=== PATIENT | female | born 1960 | race Caucasian/White ===

== ENCOUNTER 2017-04-14 08:53 | Outpatient (CLI) | payer OTHER, SELFPAY ==
[2017-04-14 09:05] VITALS: BMI 38.0
[2017-04-14 09:20] VITALS: BP 152/86; PULSE 62; RESP 18
== END 2017-04-14 09:25 | disposition home or self-care (01) ==
LOC: INF 08:56
PROVIDERS: PCP Nurse Practitioner Family; Visit Provider Nurse Practitioner Family
DX: E56.1 Deficiency of vitamin K
CPT/HCPCS: 96372

== ENCOUNTER → 2018-09-25 07:45 | Outpatient (CLI) | payer OTHER, SELFPAY ==
--- NOTE | 2018-09-25 07:47 | MR_ITS ---
MR lumbar spine wo con HISTORY: ITS.REASON: LEFT SCIATICA ORDERING PHYSICIAN: Suman Guzman PATIENT AGE: 57 years Comparison: None TECHNIQUE: Standard multiplanar multiecho sequences are performed without contrast. 3-D MIP and myelographic images are also rendered and reviewed FINDINGS: Alignment, vertebral body heights and signal from the marrow elements appear normal. Disc space heights are normal. L4-5 shows a very small central and slightly left paracentral soft disc protrusion with mild central and left ventral thecal sac deformity. The remainder of the disc levels are normal without bulge or herniation or central canal stenosis. Nerve root and foraminal areas are normal. The conus and cauda equina nerve roots appear normal. Posterior elements are normal and appear to be intact. Paraspinal areas are unremarkable. IMPRESSION: L4-5 very small central and left paracentral soft disc protrusion with mild mass effect.
== END ==
PROVIDERS: PCP Internal Medicine; Visit Provider Internal Medicine
DX: M54.32 Sciatica, left side (principal)
CPT/HCPCS: 72148; 76376

== ENCOUNTER → 2018-11-18 13:50 | Outpatient (CLI) | payer OTHER, SELFPAY ==
--- NOTE | 2018-11-18 13:54 | CA_ITS ---
APPROVED REPORT Right Upper Extremity Venous Study for DVT. Sanitation Laborer: Ana Fischer CRT Indications Past History DVT : Right Date : 2016 lower Medications Aspirin Vein Imaging IJV (R): Normal phasic flow is seen. Normal flow, augmentation and compression is seen. No evidence of Deep Vein Thrombosis. No abnormalities are demonstrated. SCV (R): Normal phasic flow is seen. Normal flow, augmentation and compression is seen. No evidence of Deep Vein Thrombosis. No abnormalities are demonstrated. Axillary (R): Normal phasic flow is seen. Normal flow, augmentation and compression is seen. No evidence of Deep Vein Thrombosis. No abnormalities are demonstrated. Brachial (R): Normal phasic flow is seen. Normal flow, augmentation and compression is seen. No evidence of Deep Vein Thrombosis. No abnormalities are demonstrated. Basilic (R): Normal phasic flow is seen. Normal flow, augmentation and compression is seen. No evidence of Deep Vein Thrombosis. No abnormalities are demonstrated. Cephalic (R): Normal phasic flow is seen. Normal flow, augmentation and compression is seen. No evidence of Deep Vein Thrombosis. No abnormalities are demonstrated. Radial (R): Normal phasic flow is seen. Normal flow, augmentation and compression is seen. No evidence of Deep Vein Thrombosis. No abnormalities are demonstrated. Ulnar (R): Normal phasic flow is seen. Normal flow, augmentation and compression is seen. No evidence of Deep Vein Thrombosis. No abnormalities are demonstrated. Conclusion Duplex evaluation of the right upper extremity demonstrates no evidence of DVT. Electronically signed by : Benjamin Lloyd MD 11/21/2018 09:26:23
== END ==
PROVIDERS: PCP Internal Medicine; Visit Provider Nurse Practitioner
DX: M25.511 Pain in right shoulder (principal); Z86.718 Personal history of other venous thrombosis and embolism
CPT/HCPCS: 93971

== ENCOUNTER → 2019-12-21 08:54 | Outpatient (CLI) | payer OTHER, SELFPAY ==
[2019-12-21 09:17] LABS: Basophils % 0.5 % (0.1-2.0); Eosinophils # 0.1 K/mm3 (0.0-0.4); Eosinophils % 1.6 % (0.1-12.0); Hematocrit 42.8 % (37.0-47.0); Hemoglobin 14.4 g/dL (12.2-16.2); Lymphocytes # 2.1 K/mm3 (0.7-4.5); Lymphocytes % 32.7 % (10-50); Mean Corpuscular HGB Conc 33.6 g/dL (31.8-35.4); Mean Corpuscular Hemoglobin 30.6 pg (27.0-31.2); Mean Platelet Volume 7.7 fl (7.4-10.4); Monocytes # 0.4 K/mm3 (0.1-1.0); Monocytes % 6.6 % (1.7-9.3); Neutrophils # 3.8 K/mm3 (1.8-7.8); Neutrophils % 58.6 % (37.0-80.0); Platelet Count 236 K/mm3 (142-424); Red Blood Count 4.71 M/mm3 (4.20-5.40); Red Cell Distribution Width 13.1 % (11.5-17.5); White Blood Count 6.6 K/mm3 (4.8-10.8)
--- NOTE | 2019-12-21 09:30 | ECG_ITS ---
APPROVED REPORT Exam: Resting ECG HR:60 bpm ECG Measurements Heart Rate 60 AXES AZ 134 P 26 QRSd 82 QRS -4 QT 430 T 19 QTc 430 <Conclusion> Normal sinus rhythm with sinus arrhythmia Low voltage QRS Poor R Wave Progression Otherwise a normal ECG Electronically signed by : Suman Guzman, 12/21/2019 13:04:53
[2019-12-21 10:27] LABS: Chloride 103 mmol/L (98-107)
[2019-12-21 10:28] LABS: Potassium 4.5 mmoL/L (3.5-5.1); Sodium 141 mmol/L (136-145)
[2019-12-21 10:30] LABS: Alanine Aminotransferase 43 U/L (12-78); Alkaline Phosphatase 70 U/L (38-126); Aspartate Amino Transferase 37 U/L (14-36); Bilirubin,Total 0.6 mg/dl (0.2-1.3); Blood Urea Nitrogen 19 mg/dl (7-17); Estimated Glomerular Filt Rate 73 ml/min (>60); GFR (African American) 89 ML/MIN (>60)
[2019-12-21 10:31] LABS: Albumin Level 4.2 g/dl (3.5-5.0); Albumin/Globulin Ratio 1.6 (1.1-1.8); Anion Gap 12.5 mEq/L (5-15); Calcium 9.5 mg/dl (8.4-10.2); Carbon Dioxide 30 mmol/L (22.0-30.0); Globulin 2.7 g/dL (1.3-3.2); Glucose 99 mg/dl (74-100); Total Protein,Serum 6.9 g/dl (6.3-8.2)
== END ==
PROVIDERS: Visit Provider Orthopaedic Surgery
DX: Z01.818 Encounter for other preprocedural examination (principal); R07.9 Chest pain, unspecified
CPT/HCPCS: 36415; 80053; 85025; 93005

== ENCOUNTER → 2020-02-06 10:47 | Outpatient (CLI) | payer OTHER, SELFPAY ==
--- NOTE | 2020-02-06 10:53 | CA_ITS ---
APPROVED REPORT Right Lower Extremity Venous Study for DVT. Explosive Ordnance Disposal Manager: Mahi Nascimento RVT Indications Lower Extremity Pain: Right DVT of Lower Extremity: Right PAIN RT CALF, HX DVT Risk Factors Prior Phlebitis/DVT Past History DVT : Medications PT STATRED ON ELIQUS YESTERDAY Vein Imaging CFV (R): compressive, spontaneous, phasic, augmentation FEM (R): compressive, spontaneous, phasic, augmentation POP (R): compressive, spontaneous, phasic, augmentation PTV (R): Compressible GSV (R): Compressible Peroneals (R):Compressible GAS (R): Thrombus, Non-Compressible Findings Study suggests a DVT seen in the posterior mid right calf. Conclusion Study suggests a DVT seen in the posterior mid right calf. Critical Notification Physician Notified Date: 02/06/2020 Time: 11:29 Physician Name: Hali becker office Electronically signed by : Benjamin Lloyd MD 02/06/2020 16:15:31
== END ==
PROVIDERS: PCP Internal Medicine; Visit Provider Internal Medicine
DX: M79.661 Pain in right lower leg (principal); Z86.718 Personal history of other venous thrombosis and embolism
CPT/HCPCS: 93971

== ENCOUNTER → 2020-10-08 10:46 | Outpatient (CLI) | payer OTHER, SELFPAY | PROVIDERS: Visit Provider Internal Medicine | DX: Z86.718 Personal history of other venous thrombosis and embolism (principal) | CPT/HCPCS: 81241 ==

== ENCOUNTER → 2020-10-09 10:09 | Outpatient (CLI) | payer OTHER, SELFPAY ==
[2020-10-10 22:07] LABS: Protein C Antigen 118 % (60-150)
[2020-10-14 07:28] LABS: Anti-Thrombin III Antigen 97 % (72-124); Protein C Functional 139 % (73-180); Protein S, Free 144 % (57-157); Protein S, Total 132 % (60-150); Protein S-Functional 120 % (63-140)
[2020-10-14 13:20] LABS: Lupus Reflex Interpretation Comment: (.); PTT-LA 29.3 sec (0.0-51.9); dRVVT 38.9 sec (0.0-47.0)
== END ==
PROVIDERS: Visit Provider Internal Medicine
DX: Z86.718 Personal history of other venous thrombosis and embolism (principal)
CPT/HCPCS: 85301; 85302; 85305; 85306; 85378; 85613

== ENCOUNTER → 2021-02-06 10:43 | Outpatient (CLI) | payer OTHER, SELFPAY ==
--- NOTE | 2021-02-06 11:11 | CA_ITS ---
APPROVED REPORT Bilateral Lower Extremity Venous Study for DVT. Administrative Law Judge: PHUONG Indications Lower Extremity Pain: Bilateral Lower Extremity Edema: Bilateral Pain and edema x 1 month. Denies trauma. Risk Factors Prior Phlebitis/DVT Medications Patient took Eliquis for prior DVT until 09/2020. She began taking it again 01/31/21. Vein Imaging CFV (R): compressive, spontaneous, phasic, augmentation FEM (R): compressive, spontaneous, phasic, augmentation POP (R): compressive, spontaneous, phasic, augmentation PTV (R): Compressible GSV (R): compressive, spontaneous, phasic, augmentation Peroneals (R):Compressible GAS (R): Compressible CFV (L): compressive, spontaneous, phasic, augmentation FEM (L): compressive, spontaneous, phasic, augmentation POP (L): compressive, spontaneous, phasic, augmentation PTV (L): Compressible GSV (L): compressive, spontaneous, phasic, augmentation Peroneals (L):Compressible Findings No evidence of DVT or superficial thrombophlebitis in the veins scanned of the right lower extremity. No evidence of DVT or superficial thrombophlebitis in the veins scanned of the left lower extremity. Conclusion No evidence of DVT or superficial thrombophlebitis in the veins scanned of the right lower extremity. No evidence of DVT or superficial thrombophlebitis in the veins scanned of the left lower extremity. Electronically signed by : Benjamin Lloyd MD 02/06/2021 15:30:19
== END ==
PROVIDERS: PCP Internal Medicine; Visit Provider Internal Medicine
DX: M79.605 Pain in left leg (principal); M79.604 Pain in right leg; Z86.718 Personal history of other venous thrombosis and embolism
CPT/HCPCS: 93970

== ENCOUNTER → 2021-06-01 12:26 | Outpatient (CLI) | payer OTHER, SELFPAY ==
[2021-06-01 13:28] LABS: Basophils % 0.5 % (0.1-2.0); Eosinophils # 0.1 K/mm3 (0.0-0.4); Eosinophils % 1.4 % (0.1-12.0); Hematocrit 40.1 % (37.0-47.0); Lymphocytes # 1.6 K/mm3 (0.7-4.5); Lymphocytes % 26.1 % (10-50); Mean Corpuscular HGB Conc 32.5 g/dL (31.8-35.4); Mean Corpuscular Volume 92.3 fl (81-99); Mean Platelet Volume 9.1 fl (7.4-10.4); Monocytes # 0.4 K/mm3 (0.1-1.0); Monocytes % 6.5 % (1.7-9.3); Neutrophils # 3.9 K/mm3 (1.8-7.8); Neutrophils % 65.4 % (37.0-80.0); Platelet Count 260 K/mm3 (142-424); Red Blood Count 4.34 M/mm3 (4.20-5.40); Red Cell Distribution Width 13.5 % (11.5-17.5)
[2021-06-01 14:27] LABS: Chloride 98 mmol/L (98-107); Potassium 4.3 mmoL/L (3.5-5.1); Sodium 135 mmol/L (136-145)
[2021-06-01 14:29] LABS: Blood Urea Nitrogen 16 mg/dl (7-17); Estimated Glomerular Filt Rate 85 ml/min (>60); GFR (African American) 103 ML/MIN (>60)
[2021-06-01 14:30] LABS: Alanine Aminotransferase 23 U/L (12-78); Albumin Level 4.1 g/dl (3.5-5.0); Albumin/Globulin Ratio 1.6 (1.1-1.8); Alkaline Phosphatase 86 U/L (38-126); Anion Gap 10.3 mEq/L (5-15); Aspartate Amino Transferase 33 U/L (14-36); Bilirubin,Total 0.4 mg/dl (0.2-1.3); Calcium 8.2 mg/dl (8.4-10.2); Carbon Dioxide 31 mmol/L (22.0-30.0); Cholesterol 185 mg/dl (140-200); Globulin 2.6 g/dL (1.3-3.2); Glucose 77 mg/dl (74-100); Total Protein,Serum 6.7 g/dl (6.3-8.2); Triglycerides 83 mg/dl (30-150); VLDL Cholesterol 17 mg/dL (0-40)
[2021-06-01 14:31] LABS: HDL Cholesterol 46 mg/dl (40-60)
[2021-06-01 15:00] LABS: Direct LDL Cholesterol 113.29 mg/dL (100-129)
== END ==
PROVIDERS: Visit Provider Internal Medicine
DX: I10 Essential (primary) hypertension (principal); E78.5 Hyperlipidemia, unspecified; M17.11 Unilateral primary osteoarthritis, right knee; Z86.718 Personal history of other venous thrombosis and embolism
CPT/HCPCS: 80053; 80061; 85025

== ENCOUNTER → 2022-06-01 12:54 | Outpatient (CLI) | payer OTHER, SELFPAY ==
[2022-06-01 14:49] LABS: Basophils # 0.1 K/mm3 (0-0.2); Basophils % 0.8 % (0.1-2.0); Eosinophils # 0.1 K/mm3 (0.0-0.4); Eosinophils % 1.6 % (0.1-12.0); Hematocrit 40.7 % (37.0-47.0); Hemoglobin 13.1 g/dL (12.2-16.2); Lymphocytes # 1.7 K/mm3 (0.7-4.5); Lymphocytes % 26.5 % (10-50); Mean Corpuscular HGB Conc 32.1 g/dL (31.8-35.4); Mean Corpuscular Hemoglobin 29.3 pg (27.0-31.2); Mean Corpuscular Volume 91.4 fl (81-99); Mean Platelet Volume 8.8 fl (7.4-10.4); Monocytes # 0.5 K/mm3 (0.1-1.0); Monocytes % 7.2 % (1.7-9.3); Neutrophils # 4.1 K/mm3 (1.8-7.8); Neutrophils % 63.9 % (37.0-80.0); Platelet Count 308 K/mm3 (142-424); Red Blood Count 4.46 M/mm3 (4.20-5.40); Red Cell Distribution Width 13.4 % (11.5-17.5); White Blood Count 6.5 K/mm3 (4.8-10.8)
[2022-06-01 15:05] LABS: Alanine Aminotransferase 24 U/L (12-78); Albumin Level 4.3 g/dl (3.5-5.0); Albumin/Globulin Ratio 1.5 (1.1-1.8); Alkaline Phosphatase 87 U/L (38-126); Anion Gap 4.2 mEq/L (5-15); Aspartate Amino Transferase 29 U/L (14-36); Bilirubin,Total 0.5 mg/dl (0.2-1.3); Blood Urea Nitrogen 13 mg/dl (7-17); Calcium 8.8 mg/dl (8.4-10.2); Carbon Dioxide 33 mmol/L (22.0-30.0); Chloride 103 mmol/L (98-107); Chol/HDL Ratio 4.3 (1-3.5); Cholesterol 196 mg/dl (140-200); Estimated Glomerular Filt Rate 73 ml/min (>60); GFR (African American) 88 ML/MIN (>60); Globulin 2.8 g/dL (1.3-3.2); Glucose 85 mg/dl (74-100); HDL Cholesterol 46 mg/dl (40-60); Potassium 4.2 mmoL/L (3.5-5.1); Sodium 136 mmol/L (136-145); Total Protein,Serum 7.1 g/dl (6.3-8.2); Triglycerides 77 mg/dl (30-150); VLDL Cholesterol 15 mg/dL (0-40)
[2022-06-01 15:15] LABS: Direct LDL Cholesterol 124.07 mg/dL (100-129)
== END ==
PROVIDERS: PCP Internal Medicine; Visit Provider Internal Medicine
DX: I10 Essential (primary) hypertension (principal); E78.5 Hyperlipidemia, unspecified
CPT/HCPCS: 80053; 80061; 85025

== ENCOUNTER → 2022-11-30 11:00 | Outpatient (CLI) | payer OTHER, SELFPAY ==
[2022-12-01 09:08] LABS: Alanine Aminotransferase 22 U/L (12-78); Albumin Level 4.2 g/dl (3.5-5.0); Albumin/Globulin Ratio 1.4 (1.1-1.8); Alkaline Phosphatase 112 U/L (38-126); Anion Gap 11.8 mEq/L (5-15); Aspartate Amino Transferase 30 U/L (14-36); Bilirubin,Total 0.6 mg/dl (0.2-1.3); Blood Urea Nitrogen 15 mg/dl (7-17); Calcium 9.4 mg/dl (8.4-10.2); Carbon Dioxide 32 mmol/L (22.0-30.0); Chloride 99 mmol/L (98-107); Chol/HDL Ratio 4.2 (1-3.5); Cholesterol 201 mg/dl (140-200); Estimated Glomerular Filt Rate 72 ml/min (>60); GFR (African American) 88 ML/MIN (>60); Globulin 3.1 g/dL (1.3-3.2); Glucose 76 mg/dl (74-100); HDL Cholesterol 48 mg/dl (40-60); Potassium 4.8 mmoL/L (3.5-5.1); Sodium 138 mmol/L (136-145); Total Protein,Serum 7.3 g/dl (6.3-8.2); Triglycerides 89 mg/dl (30-150); VLDL Cholesterol 18 mg/dL (0-40)
[2022-12-01 09:19] LABS: Direct LDL Cholesterol 119.41 mg/dL (100-129)
== END ==
PROVIDERS: PCP Internal Medicine; Visit Provider Internal Medicine
DX: I10 Essential (primary) hypertension (principal); E78.5 Hyperlipidemia, unspecified; M17.11 Unilateral primary osteoarthritis, right knee; Z86.718 Personal history of other venous thrombosis and embolism
CPT/HCPCS: 80053; 80061

== ENCOUNTER 2023-05-23 09:20 | Outpatient (CLI) | payer OTHER, SELFPAY ==
--- NOTE | 2023-05-23 09:23 | XR_ITS ---
FINAL REPORT CLINICAL HISTORY: Foot Pain FINDINGS: LEFT FOOT Three views of the left foot demonstrate no acute fracture or dislocation. There is a small plantar spur. An accessory navicular is noted. The visualized joint spaces are normally aligned. The soft tissues are unremarkable. IMPRESSION: No acute bony abnormality. Reviewed, Interpreted and Dictated by Leo Brooks MD Transcribed by Vera Wesley Authenticated and [facility] [place] [place]
--- NOTE | 2023-05-23 09:23 | XR_ITS ---
FINAL REPORT CLINICAL HISTORY: Foot Pain FINDINGS: LEFT FOOT Three views of the left foot demonstrate no acute fracture or dislocation. The visualized joint spaces are normally aligned. There is a moderate plantar spur. Hypertrophic changes are seen at the talonavicular joint. The soft tissues are unremarkable. IMPRESSION: No acute bony abnormality. Reviewed, Interpreted and Dictated by Leo Brooks MD Transcribed by Vera Wesley Authenticated and [facility]
== END 2023-05-23 23:59 ==
LOC: RAD 09:21
PROVIDERS: PCP Internal Medicine; Visit Provider Nurse Practitioner
DX: M79.671 Pain in right foot (principal); M79.672 Pain in left foot
CPT/HCPCS: 73630

== ENCOUNTER 2023-12-08 14:50 | Outpatient (CLI) | payer OTHER, SELFPAY ==
[2023-12-08 17:27] LABS: Basophils # 0.1 K/mm3 (0-0.2); Basophils % 0.7 % (0.1-2.0); Eosinophils # 0.1 K/mm3 (0.0-0.4); Eosinophils % 1.6 % (0.1-12.0); Hematocrit 43.5 % (37.0-47.0); Hemoglobin 13.6 g/dL (12.2-16.2); Lymphocytes # 2.1 K/mm3 (0.7-4.5); Mean Corpuscular HGB Conc 31.2 g/dL (31.8-35.4); Mean Corpuscular Hemoglobin 30.2 pg (27.0-31.2); Mean Corpuscular Volume 96.8 fl (81-99); Mean Platelet Volume 9.2 fl (7.4-10.4); Monocytes # 0.5 K/mm3 (0.1-1.0); Monocytes % 6.8 % (1.7-9.3); Neutrophils # 4.9 K/mm3 (1.8-7.8); Platelet Count 287 K/mm3 (142-424); Red Cell Distribution Width 13.8 % (11.5-17.5); White Blood Count 7.7 K/mm3 (4.8-10.8)
[2023-12-08 17:47] LABS: Anion Gap 9.3 mEq/L (5-15); Blood Urea Nitrogen 17 mg/dl (7-17); Carbon Dioxide 32 mmol/L (22.0-30.0); Chloride 102 mmol/L (98-107); Potassium 4.3 mmoL/L (3.5-5.1); Sodium 139 mmol/L (136-145)
[2023-12-08 17:48] LABS: Alanine Aminotransferase 25 U/L (12-78); Albumin/Globulin Ratio 1.3 (1.1-1.8); Alkaline Phosphatase 79 U/L (38-126); Aspartate Amino Transferase 34 U/L (14-36); Bilirubin,Total 0.6 mg/dl (0.2-1.3); Calcium 9.4 mg/dl (8.4-10.2); Chol/HDL Ratio 4.3 (1-3.5); Cholesterol 208 mg/dl (140-200); Estimated Glomerular Filt Rate 84 ml/min (>60); GFR (African American) 102 ML/MIN (>60); Globulin 3.1 g/dL (1.3-3.2); Glucose 76 mg/dl (74-100); HDL Cholesterol 48 mg/dl (40-60); Total Protein,Serum 7.1 g/dl (6.3-8.2); Triglycerides 103 mg/dl (30-150); VLDL Cholesterol 21 mg/dL (0-40)
[2023-12-08 17:59] LABS: Direct LDL Cholesterol 126.65 mg/dL (100-129)
== END 2023-12-08 23:59 | disposition home or self-care (01) ==
LOC: LAB.DROPOF 12-09 14:50
PROVIDERS: PCP Internal Medicine; Visit Provider Internal Medicine
DX: I10 Essential (primary) hypertension (principal); E78.5 Hyperlipidemia, unspecified
CPT/HCPCS: 80053; 80061; 85025

== ENCOUNTER 2024-06-07 07:53 | Day surgery (SDC) | payer OTHER, SELFPAY ==
[2024-06-05 11:23] VITALS: BMI 38.9
[2024-06-07 08:59] VITALS: BP 146/62; PULSE 70; RESP 16; TEMP 36.3; O2SAT 99
[2024-06-07] MEDS: LACTATED RINGERS 1000ML 1,000 ML 50 ML IV (09:12)
--- NOTE | 2024-06-07 09:21 | P.PNANES_ITS ---
[facility] Disclaimer: The information contained in this section may have been updated after the patient was seen, as this information can be updated by other users. Medical History Family history of malignant neoplasm of cervix uteri High blood pressure DVT (deep venous thrombosis) Surgical History H/O shoulder surgery bilateral Hx of appendectomy Family History (Updated 06/07/24 @ 09:05 by Henrietta Perdomo, RN) Other Afib Uterine cancer Social History (Updated 06/07/24 @ 09:06 by Henrietta Perdomo RN) Smoking Status: Never smoker alcohol intake: never substance use type: denies use current occupational status: retired Travel in the last 8 weeks: Inside the [place] caffeine: Yes Have you lived/traveled outside US in past 30 days?: No Contact w/someone who lives/traveled outside US past 30 days?: No Exposure to someone with infectious disease in past 14 days?: No Do you have a fever (greater than 100.4 F or 38 C)?: No Have you tested positive for COVID-19: Yes Exposed to someone with COVID-19 in past 14 days?: No Do you have a sore throat?: No Do you have a cough?: No Do you have any weakness?: No Are you experiencing any nausea/vomitting?: No Do you have any diarrhea?: No Are you experiencing any unusual bleeding?: No Do you have any muscle aches/pain?: No Do you have any abdominal pain?: No Are you experiencing loss of taste or smell?: No [facility] Anesthesia Checklist Patient Identification Patient Identification: Arm Band Structural Data Admitted From: Home Planned Operative Procedure/s: Colonoscopy Consent for Planned Operative Procedure(s) Verified: Yes Verified Documents: Surgical Consent and History and Physical NPO Status Verified Time NPO: 05:00 (finished prep) Additional verifications Anesthesia Reactions: No Airway Assessment Mallampati Score:: Class II C-Spine Mobility Assessed: Yes TMJ Mobility Assessed: Yes Dentition: Good Dentition Neurological Assessment Level of Consciousness: Awake, Alert and Appropriate Anesthesia Plan Anesthesia Risk discussed: Yes Anesthesia Plan: Verified ASA Class: II Anesthesia Type: MAC
[2024-06-07 10:32] VITALS: O2SAT 100
--- NOTE | 2024-06-07 10:33 | EXP.HP ---
History of Present Illness *Admission Date: 06/07/24 *Reason for visit:: Personal history of adenomatous colon polyps *History of present illness: Mrs. Brooke is a 63-year-old female who is here for surveillance colonoscopy secondary to a personal history of adenomatous colon polyps. Her last colonoscopy was October 2018. The examination is deemed medically necessary for surveillance colonoscopy. The patient has been seen, interviewed and examined prior to the procedure by both myself and the anesthesia provider. [facility] Disclaimer: The information contained in this section may have been updated after the patient was seen, as this information can be updated by other users. Medical History Family history of malignant neoplasm of cervix uteri High blood pressure DVT (deep venous thrombosis) Surgical History H/O shoulder surgery bilateral Hx of appendectomy Family History (Updated 06/07/24 @ 09:05 by Henrietta Perdomo RN) Other Afib Uterine cancer Social History (Updated 06/07/24 @ 09:06 by Henrietta Perdomo RN) Smoking Status: Never smoker alcohol intake: never substance use type: denies use current occupational status: retired Travel in the last 8 weeks: Inside the [place] caffeine: Yes Have you lived/traveled outside US in past 30 days?: No Contact w/someone who lives/traveled outside US past 30 days?: No Exposure to someone with infectious disease in past 14 days?: No Do you have a fever (greater than 100.4 F or 38 C)?: No Have you tested positive for COVID-19: Yes Exposed to someone with COVID-19 in past 14 days?: No Do you have a sore throat?: No Do you have a cough?: No Do you have any weakness?: No Are you experiencing any nausea/vomitting?: No Do you have any diarrhea?: No Are you experiencing any unusual bleeding?: No Do you have any muscle aches/pain?: No Do you have any abdominal pain?: No Are you experiencing loss of taste or smell?: No Other Medical History Have you received the Flu Vaccine for this season: No Have you received the Pneumonia Vaccine: No Review of Systems Review of Systems Review of systems (narrative): Negative *Cardiovascular Comments: Negative *Gastrointestinal Comments: Negative *Genitourinary Comments: Negative *Musculoskeletal Comments: Negative *Neurologic Comments: Negative Meds Home Medications and Allergies Home Medications ?Medication ?Instructions ?Recorded ?Confirmed ?Type hydrocodone-homatropine 5 mg-1.5 1 tab PO Q8H PRN cough #30 tabs 04/03/24 06/07/24 Rx mg tablet (Hycodan (with homatropine)) fluticasone propionate 50 2 spray intranasal BID #16 grams 05/22/24 06/07/24 Rx mcg/actuation nasal spray,suspension (Allergy Relief (fluticasone)) irbesartan 150 See Rx Instructions .Route .COMPLEX 06/05/24 06/07/24 History mg-hydrochlorothiazide 12.5 mg tablet (Avalide) aspirin 81 mg capsule 81 mg PO DAILY 06/07/24 06/07/24 History New Prescriptions to Start Prescriptions: Allergies Allergy/AdvReac Type Severity Reaction Status Date / Time No Known Allergies Allergy Verified 06/07/24 09:02 Exam Data for Last 24 hours Vital signs and Labs for Last 24 Hours: Temp Pulse Resp BP Pulse Ox O2 Del Method O2 Flow Rate 97.4 F L 70 16 146/62 H 99 Nasal Cannula 5 06/07/24 08:59 06/07/24 08:59 06/07/24 08:59 06/07/24 08:59 06/07/24 08:59 06/07/24 10:32 06/07/24 10:32 I & O for Last 24 hours: Intake & Output 06/04/24 06/05/24 06/06/24 06/07/24 23:59 23:59 23:59 23:59 Weight 227 lb *Routine HEENT Exam Head: Present normocephalic Eye: Present EOMI and PERRL ENT: Present mucous membranes moist *Routine Neck Exam Neck: Present supple *Routine Respiratory Exam Respiratory: Present CTA bilaterally *Routine Cardiovascular Exam Cardiovascular: Present RRR *Routine Abdominal Exam Abdominal: Present soft and normoactive bowel sounds; Absent tenderness *Routine Rectal Exam Rectal:: deferred *Routine Genitalia Exam Genitalia:: deferred *Routine Extremities Exam Extremities: Absent cyanosis, clubbing or edema *Routine Skin Exam Skin: Present warm; Absent rash *Routine Neurological Exam Neurological: Present alert and oriented X3 Assessment and Plan *Assessment and plan (1) Personal history of adenomatous and serrated colon polyps: Status: Acute Category: Medical Code(s): Z86.0101 - Personal history of adenomatous and serrated colon polyps Plan A/P: 1. Personal history of adenomatous colon polyps is the preprocedural diagnosis. The patient will be anesthetized/sedated using MAC sedation. The patient has been seen and examined. Cardiac and lung assessment prior to the examination is stable. Proceed with planned surveillance colonoscopy
--- NOTE | 2024-06-07 10:34 | HMH.PROCNOTE ---
[facility] Procedure Note Date: 06/07/24 Time: 10:53 Procedure Note:: Colonoscopy Procedure Report: Colonoscopy with cold snare polypectomy Endoscopist: Keegan Chopra II, MD Referring physician: Suman Guzman MD Date of Procedure: June 07, 2024 Equipment: Olympus 190 variable stiffness pediatric colonoscope Sedation: MAC sedation Indication: Mrs. Briscoe is a 63-year-old female who is here for follow-up screening/surveillance colonoscopy. She did have a colonoscopy in 2013 and had a single polyp (tubular adenoma) removed. Her last colonoscopy in October 2018 revealed 3 polyps (tubular adenomas x 2/hyperplastic polyp x 1) which were removed. Her mother had adenomatous colon polyps. She reports no abdominal pain, weight loss, change in her bowel habits or rectal bleeding. She reports no family history of colon cancer. Procedure: Prior to the procedure, a history and physical exam was performed, and patient's medications and allergies were reviewed. The risks, benefits and alternatives of the sedation and procedure were discussed with the patient. All questions were answered and informed consent was obtained. The patient was brought to the procedure room. Patient identification and proposed procedure were verified by the physician and the nurse. The patient was placed in a left lateral decubitus position and the scope was passed under direct vision. Throughout the procedure, the patient's blood pressure, pulse, and oxygen saturations were monitored continuously. The colonoscopy was accomplished without difficulty. The patient tolerated the procedure well. Findings: On digital rectal examination there was normal rectal tone. There were no external hemorrhoids. The colonoscope was introduced through the anal canal to the rectum and advanced to the cecum. The ileocecal valve and appendiceal orifice were identified. The scope was advanced a short distance into the ileum which appeared grossly normal. The scope was then withdrawn into the colon. There were 4 colon polyps (ascending x 2 (4 and 4 mm), transverse x 1 (6 mm) and rectum x 1 (3 to 4 mm)). These were all removed via cold snare polypectomy. The remaining cecum, ascending, transverse, descending, sigmoid and rectum were grossly normal. There were no other mucosal abnormalities identified. Upon retroflexion within the rectum there were grade 1 internal hemorrhoids. The preparation was excellent throughout with [place] Preparation Score of 9. The cecal time was 14 minutes. Impression: 1. Diminutive colonic polyps x 4 Plan: I will follow-up the polyp histology and recommend repeat surveillance colonoscopy again in 5 years if the polyps are adenomatous.
[2024-06-07 10:55] VITALS: BP 93/50; PULSE 80; RESP 18; TEMP 36.6; O2SAT 97
[2024-06-07 11:05] VITALS: BP 116/67; PULSE 75; RESP 18; O2SAT 97
[2024-06-07 11:15] VITALS: BP 111/62; PULSE 68; RESP 18; O2SAT 98
[2024-06-07 11:25] VITALS: BP 126/73; PULSE 68; RESP 18; O2SAT 97
== END 2024-06-07 11:53 | disposition home or self-care (01) ==
PROVIDERS: PCP Internal Medicine; Visit Provider Internal Medicine Gastroenterology
PROC: 0DJD8ZZ Inspection of Lower Intestinal Tract, Via Natural or Artificial Opening Endoscopic (ICD-10-PCS; CPT 45378; principal; 2024-06-07 09:30)
DX: K63.5 Polyp of colon (principal); K64.0 First degree hemorrhoids; Z86.0101 Personal history of adenomatous and serrated colon polyps; Z12.11 Encounter for screening for malignant neoplasm of colon; Z83.719 Family history of colon polyps, unspecified
CPT/HCPCS: 45385; J7120

== ENCOUNTER 2024-06-14 09:45 | Outpatient (CLI) | payer OTHER, SELFPAY ==
[2024-06-14 18:54] LABS: Basophils % 0.6 % (0.1-2.0); Eosinophils # 0.1 K/mm3 (0.0-0.4); Eosinophils % 1.9 % (0.1-12.0); Hematocrit 40.8 % (37.0-47.0); Hemoglobin 12.8 g/dL (12.2-16.2); Lymphocytes # 1.7 K/mm3 (0.7-4.5); Lymphocytes % 27.7 % (10-50); Mean Corpuscular HGB Conc 31.4 g/dL (31.8-35.4); Mean Corpuscular Hemoglobin 28.9 pg (27.0-31.2); Mean Corpuscular Volume 92.1 fl (81-99); Mean Platelet Volume 11.2 fl (7.4-10.4); Monocytes # 0.7 K/mm3 (0.1-1.0); Monocytes % 11.7 % (1.7-9.3); Neutrophils # 3.6 K/mm3 (1.8-7.8); Neutrophils % 57.8 % (37.0-80.0); Platelet Count 233 K/mm3 (142-424); Red Blood Count 4.43 M/mm3 (4.20-5.40); Red Cell Distribution Width 14.3 % (11.5-17.5); White Blood Count 6.2 K/mm3 (4.8-10.8)
[2024-06-14 19:31] LABS: Albumin Level 4.4 g/dl (3.5-5.0); Chloride 101 mmol/L (98-107); Potassium 4.1 mmoL/L (3.5-5.1); Sodium 139 mmol/L (136-145)
[2024-06-14 19:34] LABS: Alanine Aminotransferase 22 U/L (12-78); Albumin/Globulin Ratio 1.8 (1.1-1.8); Alkaline Phosphatase 94 U/L (38-126); Anion Gap 11.1 mEq/L (5-15); Aspartate Amino Transferase 29 U/L (14-36); Bilirubin,Total 0.3 mg/dl (0.2-1.3); Blood Urea Nitrogen 16 mg/dl (7-17); Carbon Dioxide 31 mmol/L (22.0-30.0); Chol/HDL Ratio 4.3 (1-3.5); Cholesterol 188 mg/dl (140-200); Estimated Glomerular Filt Rate 72 ml/min (>60); GFR (African American) 87 ML/MIN (>60); Globulin 2.5 g/dL (1.3-3.2); Glucose 59 mg/dl (74-100); HDL Cholesterol 44 mg/dl (40-60); Total Protein,Serum 6.9 g/dl (6.3-8.2); Triglycerides 110 mg/dl (30-150); VLDL Cholesterol 22 mg/dL (0-40)
[2024-06-14 20:38] LABS: Direct LDL Cholesterol 112.82 mg/dL (100-129)
== END 2024-06-14 23:59 | disposition home or self-care (01) ==
LOC: LAB.DROPOF 06-15 10:17
PROVIDERS: PCP Internal Medicine; Visit Provider Internal Medicine
DX: E78.5 Hyperlipidemia, unspecified (principal); I10 Essential (primary) hypertension
CPT/HCPCS: 80053; 80061; 85025

== ENCOUNTER 2024-12-17 09:47 | Outpatient (CLI) | payer MEDICARE, OTHER, SELFPAY ==
--- NOTE | 2024-12-17 09:51 | XR_ITS ---
FINAL REPORT CLINICAL HISTORY: Lumbar back pain - LT hip pain COMPARISON: None FINDINGS: LUMBOSACRAL SPINE SERIES Five views of the lumbosacral spine were obtained. There is no fracture present. There is no malalignment. The vertebrae are normal in height. There is moderate degenerative disc disease and spondylosis. IMPRESSION: Degenerative changes without acute process. Reviewed, Interpreted and Dictated by Loreta Ulloa MD Transcribed by Shayy Green Authenticated and [facility]
--- OUTSIDE RECORDS SUMMARY | 2024-12-17 09:56 | XMS_ITS | Clinical Summary ---
Author Organization [employer] ([place], [place], [place], [place]) Address [address] [place] [address] Care Team Providers Care Agronomy Manager Name Role Phone Unavailable Primary Care Provider Unavailabl e Social History Tobacco Use Types Packs/Day Years Used Date Smoking Tobacco: Never Assessed Comments Unknown Sex and Gender Information Value Date Recorded Sex Assigned at Female 09/29/2021 8:41 PM CDT Legal Sex Female 8:41 PM CDT Gender Identity Female 09/29/2021 8:41 PM CDT Sexual Orientation Not on file Plan of Treatment Not on file
--- OUTSIDE RECORDS SUMMARY | 2024-12-17 09:56 | XMS_ITS | Clinical Summary ---
Author Organization [facility] Address [address] [place] [address] Care Team Providers Care Container Shop Welder Name Role Phone Suman Guzman MD Primary Care Provider [phone] Allergies No known active allergies Medications irbesartan-hydro chlorothiazide (AVALIDE) 150-12.5 MG tablet 02/24/2018 Active cholecalciferol (VITAMIN D3) 1000 units tablet Take 1,000 Units by mouth Daily. Active Eliquis 5 MG tablet tablet 06/30/2020 Activ e Active Problems Problem Noted Date Diagnosed Date Cervical polyp June 2019 06/06/2019 DVT (deep venous thrombosis) Mar 2017 05/03/2018 Resolved Problems Problem Noted Date Diagnosed Date Resolved Date Postmenopausal bleeding 05/03/201807/04 Family History Medical History Relation Name Comments Breast cancer Neg Hx Ovarian cancer Neg Hx Social History Tobacco Use Types Packs/Day Years Used Date Smoking Tobacco: Never Smokeless Tobacco: Never Alcohol Use Standard Drinks/Week Comments No 0 (1 standard drink = 0.6 oz pur e alcohol) AUDIT-C Answer Date Recorded Frequency of Alcohol Consumption Never 06/06/2019 Average Number of Drinks Not on file 020 Frequency of Binge Drinking Not on file 07/2019 Abuse Screen Answer Date Recorded Unsafe at Home or Work/School Not on file Feels Threatened by Someone? Not on file 12/2022 Does Anyone Keep You from Co ntacting Others or Doint Things Outside the Home? Not on file 01/10/2023 Physical Sign of Abuse Present Not on file 1 Housing Stability Answer Date Recorded Current Living Arrangements Not on file 12/2022 Potentially Unsafe Housing Conditions Not on radha e 01/10/2023 Family and Community Support Answer Esteban e Recorded Help with Day-to-Day Activities Not on file 01/10/2023 Lonely or Isolated Not on file 01/10/2023 Employment Answer Date Recorded Do you want help finding or keeping work or a bekah b? Not on file 01/10/2023 Disabilities Answer Date Recorded Concentrating, Remembering, or Making Decisions Difficulty Not on file 01/10/2023 Doing Errands Independently Difficulty Not on fi le 01/10/2023 Education Answer Date Recorded Help with school or training? Not on file Preferred Language Not on file 01/10/2023 Comments No Sex and Gender Information Value Date Recorded Sex Assigned at Not on file Legal Sex Female 12:40 PM EDT Gender Identity Not on file Sexual Orientation Not on file Last Filed Vital Signs Vital Sign Reading Time Taken Comments Blood Pressure 130/80 07/28/2020 8:55 AM EDT Pulse - - Temperature - - Respiratory Rate - - Oxygen Saturation - - Inhaled Oxygen Concentration - - Weight 98.9 kg (218 lb) 07/28/2020 8:55 AM EDT Height 160 cm (5' 3 ) 07/28/2020 8:55 AM EDT Body Mass Index 38.62 07/28/2020 8:55 AM EDT Plan of Treatment Health Maintenance Due Date Last Done Comments DXA SCAN 1959 TDAP/TD VACCINES (1 - Tdap) 09/26/1978 COLOGUARD 09/26/2004 COLON CANCER SCREENING 5 YEA R SIGMOIDOSCOPY 09/26/2004 COLONOSCOPY 09/26/2004 COLORECTAL CANCER SCREENING 09/26/2004 CT COLONOGRAPHY 09/26/2004 FECAL OCCULT BLOOD TEST 09/26/2004 FIT Testing (1 year) 09/26/2004 Pneumococcal Vaccine 50+ (1 of 1 - PCV) 09/26/2009 ZOSTER VACCINE (1 of 2) 09/26/2009 ANNUAL PHYSICAL 05/03/2018 HEPATITIS C SCREENING 05/03/2018 COVID-19 Vaccine (1 - 2023-2 5 season) 2024 INFLUENZA VACCINE 01/02/2025 MAMMOGRAM 03/16/2025 03/16/2023, 07/0 04/2020, 06/13/2019, Additional history exists Procedures Procedure Name Priority Date/Time Associated Diagnosis Comments MAMMO SCREENING DIGITAL TOMOSYNTHESIS BILATERAL W CAD Routine 03/16/2023 9:35 AM EST Visit for screening mammogram from Last 3 Months or Most Recently Relevant to Health Maintenance Results * Mammo Screening Digital Tomosynthesis Bilateral With CAD (03/16/2023 9:35 AM EST) Anatomical Region Laterality Modality Breast N/A Mammography 03/18/2023 9:44 AM EST Impressions 03/18/2023 9:44 AM EST No findings suspicious for malignancy. ACR BI-RADS CATEGORY: 1, NEGATIVE RECOMMENDATION: Yearly mammogram, yearly clinical breast exam, and encourage self breast awareness. CAD was used. The standard false negative rate of mammography is between 10% and 25%. Complex patterns or increased breast density will markedly elevate the false negative rate of mammography. A letter, in lay terminology, with the results of this exam will be mailed to the patient. At our facility, a triangular marker is positioned over a palpable area of concern indicated by the patient. A [place] marker is placed over a visible skin lesion. A linear marker indicates a scar. If there is a palpable area of concern, biopsy should be considered regardless of imaging findings. This report was finalized on 03/18/2023 9:[address] Dolores Collier MD. Narrative 03/18/2023 9:44 AM EST DIGITAL SCREENING MAMMOGRAM WITH TOMOSYNTHESIS HISTORY: Routine screening. IMAGE COMPARISON: 10/02/2020, 06/13/2019. TECHNIQUE: Low dose full field digital breast tomosynthesis imaging was performed with 2D and 3D acquisitions consisting of bilateral CC and MLO views. FINDINGS: There are scattered areas of fibroglandular density. The fibroglandular pattern appears stable. There is no mass, worrisome microcalcifications, or architectural distortion to suggest development of malignancy. Suman Guzman MD IMG MAMMOGRAPHY ORDERABLES Fin al Result from Last 3 Months or Most Recently Relevant to Health Maintenance Insurance [facility] Member Subscriber Plan / Payer (Ef fective 2018-Present) Name:Jennifer Brown Relation to Subscriber:Self Name:Jennifer Brown Payer ID:[id number] (NAIC) Group ID:Not on file Type:Not on file Address: [place] [id number] [employer] [employer] Care Teams Container Shop Welder Relationship Specialty Start Date End Date Suman Guzman MD [address] [facility] [address] [facility] [place] [id number] PCP - General Internal Medicine 03/16/23
--- OUTSIDE RECORDS SUMMARY | 2024-12-17 09:56 | XMS_ITS | Referral Summary ---
Author Organization [employer] ([place], [place], [place], [place]) Address [address] [place] [address] Care Team Providers Care Machine Deburrer Name Role Phone Unavailable Primary Care Provider [...]
[2024-12-17 14:36] LABS: Albumin Level 3.8 g/dl (3.5-5.0); Chloride 102 mmol/L (98-107); Potassium 4.2 mmoL/L (3.5-5.1); Sodium 139 mmol/L (136-145)
[2024-12-17 14:38] LABS: Alanine Aminotransferase 16 U/L (12-78); Anion Gap 11.2 mEq/L (5-15); Aspartate Amino Transferase 29 U/L (14-36); Blood Urea Nitrogen 14 mg/dl (7-17); Carbon Dioxide 30 mmol/L (22.0-30.0); Creatinine,Serum 0.80 mg/dl (0.52-1.04); Estimated Glomerular Filt Rate 72 ml/min (>60); GFR (African American) 87 ML/MIN (>60)
[2024-12-17 14:39] LABS: Albumin/Globulin Ratio 1.4 (1.1-1.8); Alkaline Phosphatase 82 U/L (38-126); Bilirubin,Total 0.4 mg/dl (0.2-1.3); Calcium 8.7 mg/dl (8.4-10.2); Cholesterol 186 mg/dl (140-200); Globulin 2.8 g/dL (1.3-3.2); Glucose 86 mg/dl (74-100); HDL Cholesterol 44 mg/dl (40-60); Total Protein,Serum 6.6 g/dl (6.3-8.2); Triglycerides 71 mg/dl (30-150)
== END 2024-12-17 23:59 | disposition home or self-care (01) ==
LOC: RAD 09:48
PROVIDERS: PCP Internal Medicine; Visit Provider Internal Medicine
DX: M47.816 Spondylosis without myelopathy or radiculopathy, lumbar region (principal); I10 Essential (primary) hypertension; E78.5 Hyperlipidemia, unspecified; M17.0 Bilateral primary osteoarthritis of knee; M25.552 Pain in left hip
CPT/HCPCS: 72110; 80053; 80061

== ENCOUNTER 2025-02-09 08:41 | Emergency (ER) | payer MEDICARE, OTHER, SELFPAY ==
[2025-02-09 08:54] VITALS: BP 140/98; PULSE 74; RESP 16; TEMP 36.8; O2SAT 99; BMI 40.3
--- NOTE | 2025-02-09 08:55 | XR_ITS ---
PROCEDURE INFORMATION: Exam: XR Right Knee Exam date and time: 02/09/2025 10:09 AM Age: 64 years old Clinical indication: Pain; Knee; Right; Additional info: Knee pain atraumatic TECHNIQUE: Imaging protocol: Radiologic exam of the right knee. Views: 3 views. COMPARISON: US - CA VENOUS DOPPLER LE RT 02/09/2025 9:51 AM FINDINGS: Bones/joints: No acute fracture or malalignment. No worrisome lytic or blastic lesion. No cortical erosion or periosteal reaction. Moderate tricompartmental joint space narrowing and osteophyte formation, most prominently medial and patellofemoral compartments. Soft tissues: Normal. IMPRESSION: 1. No acute fracture or malalignment. 2. Moderate osteoarthritis.
--- NOTE | 2025-02-09 08:55 | PC.NURSE ---
call made to resp to call in tech for DVT ultrasound
--- NOTE | 2025-02-09 08:57 | CA_ITS ---
FINAL REPORT TECHNIQUE: Compression greco scale and Doppler evaluation CLINICAL HISTORY: Patient has been experiencing acute right knee pain. Denies trauma. States she has been getting injections in knee but ortho has decided to proceed with knee surgery. Pain is in right medial knee with aching in the calf and tingling in right foot. She has a history of DVT in RLE 2019 post shoulder surgery. Currently not on anticoagulants. HTN. COMPARISON: None FINDINGS: Right leg femoral and popliteal veins show normal compressibility and flow. Visualized portion of the calf veins are patent by Doppler exam. IMPRESSION: No evidence of right lower extremity deep venous thrombosis. These results were reported by the neurology technologist to Dr. Flaherty, 02/09/2025. Reviewed, Interpreted and Dictated by Loreta Ulloa MD Transcribed by Micheline Terrell Authenticated and [facility]
--- NOTE | 2025-02-09 08:57 | ED_ITS ---
Discharge Plan Disposition Chief Complaint: PAIN Prescriptions Prescriptions: No Action fluconazole 150 mg tablet 150 mg PO Q3D Qty: 2 1RF fluticasone propionate [Allergy Relief (fluticasone)] 50 mcg/actuation spray,suspension 2 spray intranasal BID Qty: 16 2RF Rx Instructions: administer into each nostril for 2 weeks, then 1 spray twice a day irbesartan-hydrochlorothiazide 150-12.5 mg tablet See Rx Instructions .ROUTE .COMPLEX Qty: 180 1RF Dose Instruction: TAKE 2 TABLETS DAILY FOR HIGH BLOOD PRESSURE Rx Instructions: TAKE 2 TABLETS DAILY FOR HIGH BLOOD PRESSURE aspirin 81 mg Capsule 81 mg PO DAILY Referrals Follow up/Referrals: Suman Guzman MD [Primary Care Provider, Medical] - See instructions Print Language Print Language: Cuban Discharge ED Provider: Joshua Flaherty General Adult HPI General Chief complaint: PAIN Stated complaint: poss DVT, right knee Time Seen by Provider: 02/09/25 08:49 History of Present Illness HPI narrative: Patient is a 64-year-old female with 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 Onset was acute over the last 48 hours. She feels a squeezing sensation adjacent to her knee which causes this concern to her and she presents here for continued evaluation. No trauma. Her initial DVT was in 2017 unprovoked, subsequent DVT was in 2019 provoked in the setting of shoulder surgery. She is not currently on anticoagulation. No new trauma. No chest pain or shortness of breath. Please note that above description of symptoms, in this electronic medical record under categorization of recalled from ER triage doctor by RN are reflective of an initial nursing assessment, however, is not reflective of my full history and physical exam that was personally taken and clarified. Consequentially, this preceding description of symptoms, which may include the patient's categorized chief complaint in the EMR, do not reflect my personal clinical impression, and the ultimate description of history of present illness and patient stated complaints should be deferred to this section of the note. Unless stated otherwise or congruent with this section of the note, additional signs, symptoms, or incongruence should be interpreted as inaccurate with my clinical impression. Related Data Home Medications ?Medication ?Instructions ?Recorded ?Confirmed aspirin 81 mg capsule 81 mg PO DAILY 06/07/2412/03 Previous Rx's ?Medication ?Instructions ?Recorded fluticasone propionate 50 2 spray intranasal BID #16 g jorge l 06/18/24 mcg/actuation nasal spray,suspension (Allergy Relief (fluticasone)) irbesartan 150 See Rx Instructions .Route 0 10/11/24 mg-hydrochlorothiazide 12.5 mg .COMPLEX #180 tabs tablet fluconazole 150 mg tablet 150 mg PO Q3D 2 doses #2 tab s 10/31/24 Allergies Allergy/AdvReac Type Severity Reaction Status Date / Time No Known Allergies Allergy Verified 12/17/24 08:46 [facility] Disclaimer: The information contained in this section may have been updated after the patient was seen, as this information can be updated by other users. Medical History Family history of malignant neoplasm of cervix uteri High blood pressure DVT (deep venous thrombosis) Surgical History H/O shoulder surgery bilateral Hx of appendectomy Family History Other Afib Uterine cancer Social History Smoking Status: Never smoker alcohol intake: never substance use type: denies use current occupational status: retired Travel in the last 8 weeks?: Inside the [place] caffeine: Yes Have you lived/traveled outside [place] in past 30 days?: No Contact w/someone who lives/traveled outside US past 30 days?: No Exposure to someone with infectious disease in past 14 days?: No Do you have a fever (greater than 100.4 F or 38 C)?: No Have you tested positive for COVID-19?: No Exposed to someone with COVID-19 in past 14 days?: No Do you have a sore throat?: No Do you have a cough?: No Do you have any weakness?: No Do you have any diarrhea?: No Are you experiencing any unusual bleeding?: No Do you have any muscle aches/pain?: No Do you have any abdominal pain?: No Are you experiencing loss of taste or smell?: No Other Medical History Have you received the Flu Vaccine for this season: No Have you received the Pneumonia Vaccine: No ROS Obtained: Yes Systems reviewed as appropriate & no additional complaints except as documented Physical Exam General General appearance: alert and in no apparent distress Head Head exam: atraumatic and normocephalic Eye Eye exam: Present PERRL and EOMI ENT ENT exam: Present mucous membranes moist Neck Neck exam: Present normal inspection Chest Chest inspection: Present normal inspection and symmetric chest wall rise Respiratory Respiratory exam: Present normal lung sounds bilaterally; Absent respiratory distress Cardiovascular Cardiovascular exam: Present regular rate and normal rhythm Abdominal Exam Abdominal exam: Present soft Extremities Exam Extremities exam: Present normal inspection and other (No significant swelling, erythematous, or asymmetric warmth of the right lower extremity compared to the left. Palpable dorsal pedal pulse on the right. Extensor mechanism intact 5 out of 5 strength right lower extremity at the knee and hip.) Neurological Exam Neurological exam: Present alert Psychiatric Psychiatric exam: Present normal affect Skin Skin exam: Present warm and dry Medical Decision Making Medical Records Screening: Per USPSTF and CDC recommendations, given the prevalence of disease in our region, it is our hospital?s policy to screen for HIV and viral Hepatitis for all patients aged 18 and over and those with ongoing risk factors. Jose Inquiry Pt receiving controlled substance: No Vital Signs: 02/09/25 08:54 02/09/25 08:54 02/09/25 09:01 Temperature 98.2 F 98.2 F Temperature Source Oral Oral Pulse Rate 74 72 Pulse Rate [Right] 74 Respiratory Rate 16 16 Blood Pressure 140/98 H 143/64 H Blood Pressure [Right Arm] 140/98 H Blood Pressure Mean [Right Arm] 112 Blood Pressure Source Manual Cuff/ Auscultation Blood Pressure Source [Right Arm] Manual Cuff/ Auscultation Blood Pressure Position Supine Blood Pressure Position [Right Arm] Supine 02 Sat by Pulse Oximetry 99 99 97 Oxygen Delivery Method Room Air Room Air Room Air 02/09/25 09:31 Temperature Temperature Source Pulse Rate 65 Pulse Rate [Right] Respiratory Rate Blood Pressure 138/71 Blood Pressure [Right Arm] Blood Pressure Mean [Right Arm] Blood Pressure Source Blood Pressure Source [Right Arm] Blood Pressure Position Blood Pressure Position [Right Arm] 02 Sat by Pulse Oximetry 99 Oxygen Delivery Method Room Air Orders (Tests/Meds): ORDERS Category Date Time Status Knee XR right 3 views [XR knee RT 3V] Stat Exams 02/09/25 08:55 Completed HIV Combo Stat Lab 02/09/25 09:06 Ordered Hepatitis C Ab Qual. W/ RFX Stat Lab 02/09/25 09:06 Ordered CA venous doppler LE RT Stat Y 02/09/25 08:57 Completed Medical Decision Narrative: In summary patient is 64-year-old female past medical history of scrota above who presents emergency department for evaluation of atraumatic knee pain and adjacent knee pain. Patient is hemodynamically stable nontoxic-appearing upon arrival, afebrile. Differential includes DVT, osteoarthritis, among others. Workup will be conducted with plain film of the right knee, duplex ultrasound. No concern for septic arthritis based on history and physical exam. Therefore hematologic labs were considered but will be deferred. No significant swelling or warmth of the knee to be concern for septic arthritis or crystalline arthropathy therefore arthrocentesis will be deferred. X-ray informally interpreted by me, no acute fracture. X-ray informally interpreted by me, no acute displaced fracture. Prelim duplex ultrasound wet read negative. Patient has no signs and symptoms of PE given this patient is appropriate for discharge at this time we will follow-up on formal read. Critical Care Critical Care Time Critical Care Time: No
--- OUTSIDE RECORDS SUMMARY | 2025-02-09 08:59 | XMS_ITS | Clinical Summary ---
Author Organization [facility] , [facility] Address [address] [place] [id number] Phone Care Team Providers Care Carton Catcher Name Role Phone Pawan LORD, Shane Unavailable [phone] GIOVANA FUNG MD Primary Care Provider [phone] Reason for Visit and Chief Complaint Follow Up Problems Includes: Problems addressed during this encounter and other active Problems All Visits Onset Date Resolved Date Provider Condition S tatus Joint Pain Left Knee 05/31/2023 Shane Villalta MD Active Last Documented On 4 9:27AM ; [facility] Joint Pain Shoulder Bilateral 09/28/2019 Dameon Villalta MD Active Last Documented On 0 9:09AM ; [facility] Joint Pain Right Knee 04/12/2018 Shane Matias Active Last Documented On 9 1:10PM ; [facility] Plan of Treatment No Plan of Treatment Recorded Assessments Includes: Assessments from this encounter No Assessments Recorded Medical Equipment - Implanted Devices Includes: Current Devices No Medical Equipment Recorded Medications Includes: Medications discussed during this encounter and other current Medications Current Medications (continue as prescribed) Irbesartan-hydroCHLOROthiazi de 150-12.5 MG Oral Tablet 07/10/2024 Provider: GIOVANA FUNG MD Diagnosis: Last Documented On 5 10:04AM By Ced Campuzano ; [facility] Fluticasone Propionate 50 MC G/ACT Nasal Suspension 05/22/2024 Provider: GIOVANA FUNG MD Diagnosis: Last Documented On 5 10:04AM By Ced Campuzano ; [facility], [facility] Amoxicillin-Pot Clavulanate 875-125 MG Oral Tablet 04/03/2024 Provider: GIOVANA FUNG MD Diagnosis: Last Documented On 5 10:04AM By Ced Campuzano ; [facility], [facility] Meloxicam 7.5 MG Oral Tablet 06/14/2023 Provider: Diagnosis: Last Documented On 4 2:23PM By Shane Villalta ; [facility], [facility] HYDROcodone Bit-Homatrop MBr 5-1.5 MG Oral Tablet 06/13/2023 Provider: GIOVANA FUNG MD Diagnosis: Last Documented On 4 2:23PM By Shane Villalta ; [facility], [facility] Medications Administered Includes: Administered Medications from this encounter No Administered Medications Recorded Results Includes: Results discussed during this encounter No Results Recorded For Specified Dates History of Present Illness Includes: History of Present Illness from this encounter No History of Present Illness Recorded Social History No Social History Recorded - Smoking Status Unknown Medical History Includes: Medical History addressed during this encounter No Medical History Recorded Family History Includes: Family History addressed during this encounter No Family History Recorded Review of Systems Includes: Review of Systems from this encounter No Review of Systems Recorded Mental Status Includes: Mental Status from this encounter No Mental Status Recorded Functional Status Includes: Functional Status from this encounter No Functional Status Recorded Physical Exam Includes: Physical Exam from this encounter No Physical Exam Recorded Allergies Includes: Active Allergies No Known Allergies Encounters Encounter Provider Location Date Check-In Time Check- Out Time Diagnosis Follow Up Jeffery Miramontes PA-C [facility] B 5 9:20AM 9:49AM Insurance Includes: Active Insurance Policies Plan Name Member ID Group # Subscriber Relationship Effect huma Dates 1 - Medicare Part B [facility] [id number] Jennifer Jerez Self 09/02/2024 - Unknown 2 - [employer] [id number] Jennifer Jerez Self Clinical Notes Includes: Clinical Notes from this encounter No Clinical Notes Recorded
--- OUTSIDE RECORDS SUMMARY | 2025-02-09 08:59 | XMS_ITS | Clinical Summary ---
Author Organization [facility] Address [address] [place] [phone] Phone Care Team Providers Care Casework Supervisor Name Role Phone Pawan LORD, Shane Unavailable [phone] GIOVANA FUNG MD Primary Care Provider [phone] Reason for Visit and Chief Complaint The Chief Complaint is: RIGHT KNEE PAIN Problems Includes: Problems addressed during this encounter and other active Problems All Visits Onset Date Resolved Date Provider Condition S tatus Joint Pain Left Knee 05/31/2023 Shane Villalta MD Active Last Documented On 4 9:27AM ; [facility] Joint Pain Shoulder Bilateral 09/28/2019 Dameon Villalta MD Active Last Documented On 0 9:09AM ; [facility] Joint Pain Right Knee 04/12/2018 Shane Matias Active Last Documented On 9 1:10PM ; [facility] Plan of Treatment Patient screened for future fall risk: documentation of any fall with injury in past year. - Last Documented On 10/04/2024 8:40AM ; [facility] Instructions to patient Lose weight Last Documented On 5 8:30AM ; [facility] Assessments Includes: Assessments from this encounter Findings - Overweight - Last Documented On 10/04/2024 8:40AM ; [facility], [facility] Instructions Includes: Instructions from this encounter Instructions to patient Lose weight Last Documented On 5 8:30AM ; [facility], [facility] Medical Equipment - Implanted Devices Includes: Current Devices No Medical Equipment Recorded Medications Includes: Medications discussed during this encounter and other current Medications Current Medications (continue as prescribed) Irbesartan-hydroCHLOROthiazi de 150-12.5 MG Oral Tablet 07/10/2024 Provider: GIOVANA FUNG MD Diagnosis: Last Documented On 5 10:04AM By Ced Campuzano ; [facility], [facility] Fluticasone Propionate 50 MC G/ACT Nasal Suspension 05/22/2024 Provider: GIOVANA FUNG MD Diagnosis: Last Documented On 5 10:04AM By Ced Campuzano ; [facility], [facility] Amoxicillin-Pot Clavulanate 875-125 MG Oral Tablet 04/03/2024 Provider: GIOVANA FUNG MD Diagnosis: Last Documented On 5 10:04AM By Ced Campuzano ; [facility], [facility] Meloxicam 7.5 MG Oral Tablet 06/14/2023 Provider: Diagnosis: Last Documented On 4 2:23PM By Shane Villalta ; [facility] HYDROcodone Bit-Homatrop MBr 5-1.5 MG Oral Tablet 06/13/2023 Provider: GIOVANA FUNG MD Diagnosis: Last Documented On 4 2:23PM By Shane Villalta ; [facility], [facility] Past Medications on file Medrol 4 MG Oral Tablet Therapy Pack 07/20/2023 - 07/27/2023 Provider: Tere roberts PA-C Diagnosis: take as directed Last Documented On 4 3:53PM By Senia Olguin ; [facility], [facility] Medications Administered Includes: Administered Medications from this encounter No Administered Medications Recorded Vital Signs Includes: Vital Signs from this encounter Vital Name 10/04/2024 08:30A Height (in) 64 Weight (lb) 225 Body Mass Index 38.6 Body Surface Area 2.1 Note: ser Last Documented: On 10/04/2024 8:30AM ; [facility], [facility] Results Includes: Results discussed during this encounter No Results Recorded For Specified Dates History of Present Illness Includes: History of Present Illness from this encounter HPI Jennifer Jerez is a 64 year old female. - Symptoms CATCHING. - Allergy list reviewed - Problem list reviewed - Medication list reviewed - Sharp pain Symptoms - Pain is occasional (25% of the time) - Pain is throbbing - Patient pain level from 1-10: 4 BETTER: NOT MOVING WORSE: BENDINGKNEE, WALKING, ECT ? No previous treatment. - Review of medications documented Social History Description Last Updated No recent change in diet 06/02/2023 Last Documented On 5 8:30AM ; [facility] Not a current smoker. 06/02/2023 Last Documented On 5 8:30AM ; [facility] Tobacco non-user 06/03/2022 Last Documented On 5 8:30AM ; [facility] Recent change in diet 07/29/2020 Last Documented On 5 8:30AM ; [facility] Not a current smoker. 04/15/2020 Last Documented On 5 8:30AM ; [facility] Non-smoker 01/25/2020 Last Documented On 5 8:30AM ; [facility] Caffeine use 05/25/2019 Last Documented On 5 8:30AM ; [facility], [facility] No tobacco use 04/12/2018 Last Documented On 5 8:30AM ; [facility] Smoking status : Never smoker 04/12/2018 Last Documented On 5 8:30AM ; [facility] Not a current smoker 04/12/2018 Last Documented On 5 8:30AM ; [facility], [facility] Not exercising regularly 04/12/2018 Last Documented On 5 8:30AM ; [facility] Not using alcohol 04/12/2018 Last Documented On 5 8:30AM ; [facility], [facility] Not using drugs 04/12/2018 Last Documented On 5 8:30AM ; [facility], [facility] Procedures and Surgical History Includes: Procedures from this encounter Procedures Code Diagnosis Performing Provider Service Location Service Date DRAIN/INJECT, JOINT/BURSA (RIGHT) Unilateral primary osteoarthritis, right knee Jeffery Bal Miramontes PA-C [facility] 10/04/2024 Last Documented On 5 9:24PM ; [facility], [facility] Orthovisc Hyaluonan, 2cc (RIGHT) [id number] Unilateral primary osteoarthritis, right knee Jeffery Bal Miramontes PA-C [facility] 10/04/2024 Last Documented On 5 9:24PM ; [facility], [facility] Surgical History Last Updated History of appendectomy 08/23/2024 Last Documented On 5 8:30AM ; [facility], [facility] History of Past Surgical History: 2024 Last Documented On 5 8:30AM ; [facility], [facility] Medical History Includes: Medical History addressed during this encounter Description Last Updated History of arthritis 08/23/2024 Last Documented On 5 8:30AM ; [facility], [facility] History of History of Blood Clots 2024 Last Documented On 5 8:30AM ; [facility], [facility] History of Hypertension 08/23/2024 Last Documented On 5 8:30AM ; [facility], [facility] Arthritis 07/29/2020 Last Documented On 5 8:30AM ; [facility] History of Blood Clots 07/29/2020 Last Documented On 5 8:30AM ; [facility] Hypertension 07/29/2020 Last Documented On 5 8:30AM ; [facility] No recent immunization for flu Last Documented On 5 8:30AM ; [facility] No recent immunization for pneumococcal pneumonia 04/15/2020 Last Documented On 5 8:30AM ; [facility] Intermittent hypertension 05/25/2019 Last Documented On 5 8:30AM ; [facility] Shoulder SX - spur removal ~high bp ~blo od clots 04/12/2018 Last Documented On 5 8:30AM ; [facility], [facility] Arthritic joint problems 04/12/2018 Last Documented On 5 8:30AM ; [facility], [facility] Family History Includes: Family History addressed during this encounter Description Last Updated Maternal history of family history of ca ncer 08/23/2024 Last Documented On 5 8:30AM ; [facility], [facility] Maternal history of family history of he art disease 08/23/2024 Last Documented On 5 8:30AM ; [facility] Maternal history of systemic hypertensio n 08/23/2024 Last Documented On 5 8:30AM ; [facility] Family history of hypertension 0 Last Documented On 5 8:30AM ; [facility] Family history of rheumatoid arthritis 0 05/25/2019 Last Documented On 5 8:30AM ; [facility] Family history of cancer 04/12/2018 Last Documented On 5 8:30AM ; [facility] Family history of heart disease 04/12/19 19 Last Documented On 5 8:30AM ; [facility] Review of Systems Includes: Review of Systems from this encounter Systemic: No symptoms, not feeling tired, no recent weight loss, and no recent weight gain. Head: No headache. Sinus pain. Eyes: No vision problems and no Cataracts. Glasses/Contacts. No Glaucoma. Otolaryngeal: No hearing loss and no tinnitus. Cardiovascular: No chest pain or discomfort and no palpitations. Hypertension. No High Cholesterol. Pulmonary: No daytime asthma symptoms and no chronic cough. No wheezing. Gastrointestinal: No heartburn and no abdominal pain. No Indigestion, no Peptic Ulcer, no GI Stomach Bleed, no Ulcers, and no Acid Reflux. Endocrine: No hot flashes, no muscle weakness, no Diabetes, no Hypothyroid, and no Hyperthyroid. Hematologic: No easy bleeding, no tendency for easy bruising, and no Anemia. Musculoskeletal: Arthritis. No lower back pain. No soft tissue swelling and no localized joint pain. Neurological: No dizziness, no convulsions, and no numbness. Psychological: No anxiety, no emotional lability, no depression, and no insomnia. Not crying for no reason. Skin: No dry skin. No Ulcers, no Scars, and no rash. Allergic and Immunologic: No complaint of seasonal allergic reaction. Mental Status Includes: Mental Status from this encounter Description No anxiety Functional Status Includes: Functional Status from this encounter No Functional Status Recorded Physical Exam Includes: Physical Exam from this encounter Allergies Includes: Active Allergies No Known Allergies Encounters Encounter Provider Location Date Check-In Time Check-Out Time Diagnosis COSTA Injection Jeffery Miramontes PA-C [facility] 10/05/19 8:29AM 8:47AM Overweight Insurance Includes: Active Insurance Policies Plan Name Member ID Group # Subscriber Relationship Effect huma Dates 1 - Medicare Part B [facility] [id number] Jennifer Jerez Self 09/02/2024 - Unknown 2 - [employer] [id number] Jennifer Jerez Self Clinical Notes Includes: Clinical Notes from this encounter * Progress note Date Encounter Last Documented by 10/04/2024 COSTA Injection Last documented on 10/04/2024; 8:40 AM, Jeffery Miramontes PA-C; [facility], [facility] Active Problems & Conditions - Joint Pain in the Left Knee - Joint Pain in the Right Knee - Joint Pain, Localized in Both Shoulders Chief Complaint The Chief Complaint is: RIGHT KNEE PAIN. Referred Here Referred by PCP. History of Present Illness Jennifer Jerez is a 64 year old female. - Symptoms CATCHING. - Allergy list reviewed - Problem list reviewed - Medication list reviewed - Sharp pain Symptoms - Pain is occasional (25% of the time) - Pain is throbbing - Patient pain level from 1-10: 4 BETTER: NOT MOVING WORSE: BENDINGKNEE, WALKING, ECT - No previous treatment. - Review of medications documented Current Medication - Amoxicillin-Pot Clavulanate 875-125 MG Oral Tablet 10 days, 0 refills - Fluticasone Propionate 50 MCG/ACT Nasal Suspension 30 days, 0 refills - HYDROcodone Bit-Homatrop MBr 5-1.5 MG Oral Tablet 8 days, 0 refills - Irbesartan-hydroCHLOROthiazide 150-12.5 MG Oral Tablet 90 days, 0 refills - Meloxicam 7.5 MG Oral Tablet 30 days, 0 refills Past Medical/Surgical History Reported: Medical: Arthritic joint problems. Intermittent hypertension. Immunization History: No recent immunization for flu and not for pneumococcal pneumonia. Diagnoses: - History of Blood Clots Diagnoses: History of Blood Clots Diagnoses: - Hypertension Diagnoses: Hypertension Diagnoses: - Arthritis Diagnoses: Arthritis Shoulder SX - spur removal high bp blood clots. Surgical: - Appendectomy - Past Surgical History: Social History Not a current smoker. Not a current smoker. Current diet: Recent change in diet. No recent change in diet. Behavioral: Tobacco non-user. Not a current smoker. Caffeine: Caffeine use. Tobacco use: No tobacco use. Non-smoker. Smoking status: Never smoker. Alcohol: Not using alcohol. Drug Use: Not using drugs. Habits: Not exercising regularly. Allergies - No Known Allergies Family History Cancer Heart disease Systemic hypertension Rheumatoid arthritis Maternal: Cancer Heart disease Systemic hypertension Review Of Systems Systemic: No symptoms, not feeling tired, no recent weight loss, and no recent weight gain. Head: No headache. Sinus pain. Eyes: No vision problems and no Cataracts. Glasses/Contacts. No Glaucoma. Otolaryngeal: No hearing loss and no tinnitus. Cardiovascular: No chest pain or discomfort and no palpitations. Hypertension. No High Cholesterol. Pulmonary: No daytime asthma symptoms and no chronic cough. No wheezing. Gastrointestinal: No heartburn and no abdominal pain. No Indigestion, no Peptic Ulcer, no GI Stomach Bleed, no Ulcers, and no Acid Reflux. Endocrine: No hot flashes, no muscle weakness, no Diabetes, no Hypothyroid, and no Hyperthyroid. Hematologic: No easy bleeding, no tendency for easy bruising, and no Anemia. Musculoskeletal: Arthritis. No lower back pain. No soft tissue swelling and no localized joint pain. Neurological: No dizziness, no convulsions, and no numbness. Psychological: No anxiety, no emotional lability, no depression, and no insomnia. Not crying for no reason. Skin: No dry skin. No Ulcers, no Scars, and no rash. Allergic and Immunologic: No complaint of seasonal allergic reaction. Physical Findings - Vitals taken 10/04/2024 08:30 am ser Height 64 in Weight 225 lbs Body Mass Index 38.6 kg/m2 Body Surface Area 2.1 m2 Assessment - Overweight Counseling/Education Tobacco non-user. use of tobacco assessment performed. - Lose weight Plan Patient screened for future fall risk: documentation of any fall with injury in past year. Notes This dictation was done with voice recognition software and may contain errors and omissions. HPI: 63-year-old female patient comes in today with need of a right knee Orthovisc injection Review of systems: All systems within normal limits with exception of knee pain PHYSICAL EXAM: CONSTITUTIONAL: Well developed, well groomed, well nourished patient in no acute distress who appears stated age, height and weight. PSYCHIATRIC: The patient is alert and oriented to person, place, date and situation. Mood and affect are normal for current situation. NEUROLOGICAL: Sensation normal bilateral upper and lower extremities. LYMPHATIC: No pitting edema noted in the lower extremities. SKIN: No lesions noted on upper or lower extremities. Skin is dry, warm and with normal turgor. VASCULAR: No swelling in upper or lower extremities other than described below in extremity exam. Pulses normal in both upper (radial) extremities. GAIT AND STATION: Normal gait without assistive devices. Station normal. The patient has normal gait and station. There are no bony deformities to the leg. There is no muscle atrophy in the quad. The knee is placed through full functional range of motion both actively and passively without pain or limitation. There is normal strength and quadriceps. There is no locking of the joint. There was no palpable bony tenderness. Cruciate and chronic collateral ligaments were tested and showed no instability or pain. There is no joint effusion. There is no erythema or other signs of infection. There are no acute skin injuries. The patient has sensation to light touch over the lower extremity. Brisk cap refill throughout the lower extremity. No defect or pain is palpated in the quad or patellar tendon. There is no edema in the lower extremity. No signs of a DVT. Range of Motion: 0- of extension 120- of flexion with audible and palpable crepitus 4/5 motor strength Anterior and posterior drawers normal Varus valgus stress testing normal X-ray: Radiographs of the knee show no acute fracture or dislocation. There is no effusion. No bony abnormalities. Past failed treatment: None Assessment and plan: Right knee Orthovisc injection Patient took the injection very well sterile prep she will return in 3-4 months for recheck Right knee The risks of the procedure were explained verbally knowledge by the patient. Verbal consent was obtained. The knee was prepped with Betadine and/or alcohol. The knee was then put in a flexed position in the intercondylar notch was palpated. The skin at the site of injection was then anesthetized with ethyl chloride spray. A 27- gauge needle was inserted into the retropatellar space, aiming toward the intercondylar notch. Aspiration was done, confirming no intravascular location . The orthovisc was then injected into the interior space of the knee joint without complication. The needle with was withdrawn and a Band-Aid was applied. The patient tolerated the procedure well. Care Team - GIOVANA FUNG MD - WEBBING TACKER
--- OUTSIDE RECORDS SUMMARY | 2025-02-09 08:59 | XMS_ITS | Clinical Summary ---
Author Organization [facility] , [facility] Address [address] [place] [phone] Phone Care Team Providers Care Maori Liaison Adviser Name Role Phone Pawan LORD, Shane Unavailable [phone] GIOVANA FUNG MD Primary Care Provider [phone] Reason for Visit and Chief Complaint The Chief Complaint is: RIGHT KNEE PAIN Problems Includes: Problems addressed during this encounter and other active Problems All Visits Onset Date Resolved Date Provider Condition S tatus Joint Pain Left Knee 05/31/2023 Shane Villalta MD Active Last Documented On 4 9:27AM ; [facility] Joint Pain Shoulder Bilateral 09/28/2019 Dameon Villalta MD Active Last Documented On 0 9:09AM ; [facility] Joint Pain Right Knee 04/12/2018 Shane Matias Active Last Documented On 9 1:10PM ; [facility] Plan of Treatment Instructions to patient Lose weight Last Documented On 5 10:23AM ; [facility] Assessments Includes: Assessments from this encounter Findings - Overweight - Last Documented On 09/25/2024 3:34PM ; [facility] Instructions Includes: Instructions from this encounter Instructions to patient Lose weight Last Documented On 5 10:23AM ; [facility] Medical Equipment - Implanted Devices Includes: Current Devices No Medical Equipment Recorded Medications Includes: Medications discussed during this encounter and other current Medications Discontinued / Stopped on this date GIOVANA FUNG MD on 04/11/2024 Irbesartan-hydroCHLOROthiazi de 150-12.5 MG Oral Tablet Provider: GIOVANA FUNG MD Diagnosis: Last Documented On 5 10:24AM By Madai Valdez ; [facility] Plenvu 140 GM Oral Solution Reconstituted Provider: ELAINE ARMANDO II, MD Diagnosis: Last Documented On 5 10:24AM By Madai Valdez ; [facility] Irbesartan-hydroCHLOROthiazi de 150-12.5 MG Oral Tablet Provider: GIOVANA FUNG MD Diagnosis: Last Documented On 5 10:23AM By Madai Valdez ; [facility] Fluconazole 150 MG Oral Tablet Provider: GIOVANA FUNG MD Diagnosis: Last Documented On 5 10:24AM By Madai Valdez ; [facility] Amoxicillin-Pot Clavulanate 875-125 MG Oral Tablet Provider: GIOVANA FUNG MD Diagnosis: Last Documented On 5 10:24AM By Madai Valdez ; [facility] Meloxicam 7.5 MG Oral Tablet Provider: Diagnosis: Last Documented On 5 10:23AM By Madai Valdez ; [facility] Meloxicam 7.5 MG Oral Tablet Provider: Diagnosis: Last Documented On 5 10:23AM By Madai Vadlez ; [facility] Irbesartan-hydroCHLOROthiazi de 150-12.5 MG Oral Tablet Provider: GIOVANA FUNG MD Diagnosis: Last Documented On 5 10:23AM By Madai Valdez ; [facility] Irbesartan-hydroCHLOROthiazi de 150-12.5 MG Oral Tablet Provider: GIOVANA FUNG MD Diagnosis: Last Documented On 5 10:23AM By Madai Valdez ; [facility] Current Medications (continue as prescribed) Irbesartan-hydroCHLOROthiazi de 150-12.5 MG Oral Tablet 07/10/2024 Provider: GIOVANA FUNG MD Diagnosis: Last Documented On 5 10:04AM By Ced Campuzano ; [facility] Fluticasone Propionate 50 MC G/ACT Nasal Suspension 05/22/2024 Provider: GIOVANA FUNG MD Diagnosis: Last Documented On 5 10:04AM By Ced Campuzano ; [facility] Amoxicillin-Pot Clavulanate 875-125 MG Oral Tablet 04/03/2024 Provider: GIOVANA FUNG MD Diagnosis: Last Documented On 5 10:04AM By Ced Campuzano ; [facility] Meloxicam 7.5 MG Oral Tablet 06/14/2023 Provider: Diagnosis: Last Documented On 4 2:23PM By Shane Villalta ; [facility] HYDROcodone Bit-Homatrop MBr 5-1.5 MG Oral Tablet 06/13/2023 Provider: GIOVANA FUNG MD Diagnosis: Last Documented On 4 2:23PM By Shane Villalta ; [facility] Past Medications on file Medrol 4 MG Oral Tablet Therapy Pack 07/20/2023 - 07/27/2023 Provider: Tree roberts PA-C Diagnosis: take as directed Last Documented On 4 3:53PM By Senia Olguin ; [facility] Medications Administered Includes: Administered Medications from this encounter No Administered Medications Recorded Vital Signs Includes: Vital Signs from this encounter Vital Name 09/20/2024 10:24A Height (in) 64 Weight (lb) 225.4 Body Mass Index 38.7 Body Surface Area 2.1 Pain Level 2 Note: sr Last Documented: On 09/20/2024 10:24A M ; [facility] Results Includes: Results discussed during this encounter No Results Recorded For Specified Dates History of Present Illness Includes: History of Present Illness from this encounter AFSANEH Jerez is a 63 year old female. - Symptoms CATCHING. - [...] in diet 06/02/2023 Last Documented On 5 10:23AM ; [facility] Not a current smoker. 06/02/2023 Last Documented On 5 10:23AM ; [facility] Tobacco non-user 06/03/2022 Last Documented On 5 10:23AM ; [facility] Recent change in diet 07/29/2020 Last Documented On 5 10:23AM ; [facility] Not a current smoker. 04/15/2020 Last Documented On 5 10:23AM ; [facility], [facility] Non-smoker 01/25/2020 Last Documented On 5 10:23AM ; [facility], [facility] Caffeine use 05/25/2019 Last Documented On 5 10:23AM ; [facility] No tobacco use 04/12/2018 Last Documented On 5 10:23AM ; [facility], [facility] Smoking status : Never smoker 04/12/2018 Last Documented On 5 10:23AM ; [facility], [facility] Not a current smoker 04/12/2018 Last Documented On 5 10:23AM ; [facility] Not exercising regularly 04/12/2018 Last Documented On 5 10:23AM ; [facility] Not using alcohol 04/12/2018 Last Documented On 5 10:23AM ; [facility] Not using drugs 04/12/2018 Last Documented On 5 10:23AM ; [facility], [facility] Procedures and Surgical History Includes: Procedures from this encounter Procedures Code Diagnosis Performing Provider Service Location Service Date DRAIN/INJECT, JOINT/BURSA (RIGHT) Unilateral primary osteoarthritis, right knee Jeffery Bal Miramontes PA-C [facility] B 09/20/2024 Last Documented On 5 5:47PM ; [facility] Orthovisc Hyaluonan, 2cc (RIGHT) [id number] Unilateral primary osteoarthritis, right knee Jeffery Bal Miramontes PA-C [facility] B 09/20/2024 Last Documented On 5 5:47PM ; [facility], [facility] Surgical History Last Updated History of appendectomy 08/23/2024 Last Documented On 5 10:23AM ; [facility], [facility] History of Past Surgical History: 2024 Last Documented On 5 10:23AM ; [facility] Medical History Includes: Medical History addressed during this encounter Description Last Updated Arthritis 07/29/2020 Last Documented On 5 10:23AM ; [facility] History of Blood Clots 07/29/2020 Last Documented On 5 10:23AM ; [facility] Hypertension 07/29/2020 Last Documented On 5 10:23AM ; [facility] No recent immunization for flu 1 Last Documented On 5 10:23AM ; [facility] No recent immunization for pneumococcal pneumonia 04/15/2020 Last Documented On 5 10:23AM ; [facility] Intermittent hypertension 05/25/2019 Last Documented On 5 10:23AM ; [facility] Shoulder SX - spur removal ~high bp ~blo od clots 04/12/2018 Last Documented On 5 10:23AM ; [facility] Arthritic joint problems 04/12/2018 Last Documented On 5 10:23AM ; [facility] Family History Includes: Family History addressed during this encounter Description Last Updated Maternal history of family history of ca ncer 08/23/2024 Last Documented On 5 10:23AM ; [facility] Maternal history of family history of he art disease 08/23/2024 Last Documented On 5 10:23AM ; [facility] Maternal history of systemic hypertensio n 08/23/2024 Last Documented On 5 10:23AM ; [facility] Family history of hypertension 0 Last Documented On 5 10:23AM ; [facility] Family history of rheumatoid arthritis 0 05/25/2019 Last Documented On 5 10:23AM ; [facility] Family history of cancer 04/12/2018 Last Documented On 5 10:23AM ; [facility] Family history of heart disease 04/12/19 19 Last Documented On 5 10:23AM ; [facility] Review of Systems Includes: Review of Systems [...] Time Diagnosis COSTA Injection Jeffery Miramontes PA-C [facility] 09/21/19 25 10:01AM 10:47AM Overweight Insurance Includes: Active Insurance Policies Plan Name Member ID Group # Subscriber Relationship Effect huma Dates 1 - Medicare Part B [facility] [id number] Jennifer Jerez Self 09/02/2024 - Unknown 2 - [employer] [id number] Jennifer Jerez Self Clinical Notes Includes: Clinical Notes from this encounter * Progress note Date Encounter Last Documented by 09/20/2024 COSTA Injection Last documented on 09/25/2024; 3:34 PM, Jeffery Miramontes PA-C; [facility] Active Problems & Conditions - Joint Pain in the Left Knee - Joint Pain in the Right Knee - Joint Pain, Localized in Both Shoulders Chief Complaint The Chief Complaint is: RIGHT KNEE PAIN. Referred Here Referred by PCP. History of Present Illness Jennifer Jerez is a 63 year old female. - Symptoms CATCHING. - [...] pneumonia. Diagnoses: - History of Blood Clots - Hypertension - Arthritis Shoulder SX - spur removal high [...] allergic reaction. Physical Findings - Vitals taken 09/20/2024 10:24 am sr Height 64 in Weight 225 lbs 6.4 oz Body Mass Index 38.7 kg/m2 Body Surface Area 2.1 m2 Pain Level 2 Assessment - Overweight Counseling/Education Tobacco non-user. use of tobacco assessment performed. - Lose weight Notes This dictation was done with voice [...] well sterile prep she will return in 1 week for the 3rd set of the 4 series Right knee The risks of the procedure [...] Care Team - GIOVANA FUNG MD - MEDICAL PATHOLOGY TEACHER
--- OUTSIDE RECORDS SUMMARY | 2025-02-09 08:59 | XMS_ITS | Clinical Summary ---
Author Organization [facility] , [facility] Address [address] [place] [phone] Phone Care Team Providers Care Bass Fisher Name Role Phone Pawan LORD, Shane Unavailable [phone] GIOVANA FUNG MD Primary Care Provider [phone] Reason for Visit and Chief Complaint The Chief Complaint is: RIGHT KNEE PAIN Problems Includes: Problems addressed during this encounter and other active Problems All Visits Onset Date Resolved Date Provider Condition S tatus Joint Pain Left Knee 05/31/2023 Shane Villalta MD Active Last Documented On 4 9:27AM ; [facility] Joint Pain Shoulder Bilateral 09/28/2019 Dameon Villalta MD Active Last Documented On 0 9:09AM ; [facility] Joint Pain Right Knee 04/12/2018 Shane Matias Active Last Documented On 9 1:10PM ; [facility] Plan of Treatment Instructions to patient Lose weight Last Documented On 5 10:03AM ; [facility] Assessments Includes: Assessments from this encounter Findings - Overweight - Last Documented On 09/15/2024 11:08AM ; [facility], [facility] Instructions Includes: Instructions from this encounter Instructions to patient Lose weight Last Documented On 5 10:03AM ; [facility] Medical Equipment - Implanted Devices Includes: Current Devices No Medical Equipment Recorded Medications Includes: Medications discussed during this encounter and other current Medications Current Medications (continue as prescribed) Irbesartan-hydroCHLOROthiazi de 150-12.5 MG Oral Tablet 07/10/2024 Provider: GIOVANA FUNG MD Diagnosis: Last Documented On 5 10:04AM By Ced Campuzano ; [facility], [facility] Fluticasone Propionate 50 MC G/ACT Nasal Suspension 05/22/2024 Provider: GIOVANA FUNG MD Diagnosis: Last Documented On 5 10:04AM By Ced Campuzano ; [facility] Amoxicillin-Pot Clavulanate 875-125 MG Oral Tablet 04/03/2024 Provider: GIOVANA FUNG MD Diagnosis: Last Documented On 5 10:04AM By Ced Campuzano ; [facility], [facility] Meloxicam 7.5 MG Oral Tablet 06/14/2023 Provider: Diagnosis: Last Documented On 4 2:23PM By Shane Villalta ; [facility], [facility] HYDROcodone Bit-Homatrop MBr 5-1.5 MG Oral Tablet 06/13/2023 Provider: GIOVANA FUNG MD Diagnosis: Last Documented On 4 2:23PM By Shane Villalta ; [facility] Past Medications on file Medrol 4 MG Oral Tablet Therapy Pack 07/20/2023 - 07/27/2023 Provider: Tree roberts PA-C Diagnosis: take as directed Last Documented On 4 3:53PM By Senia Olguin ; [facility], [facility] Medications Administered Includes: Administered Medications from this encounter No Administered Medications Recorded Vital Signs Includes: Vital Signs from this encounter Vital Name 09/13/2024 10:03A Height (in) 64 Weight (lb) 220 Body Mass Index 37.8 Body Surface Area 2 Note: bm Last Documented: On 09/13/2024 10:04A M ; [facility] Results Includes: Results discussed during this encounter No Results Recorded For Specified Dates History of Present Illness Includes: History of Present Illness from this encounter HPI Jennifer Jerez is a 63 year old [...] in diet 06/02/2023 Last Documented On 5 10:03AM ; [facility] Not a current smoker. 06/02/2023 Last Documented On 5 10:03AM ; [facility], [facility] Tobacco non-user 06/03/2022 Last Documented On 5 10:03AM ; [facility], [facility] Recent change in diet 07/29/2020 Last Documented On 5 10:03AM ; [facility] Not a current smoker. 04/15/2020 Last Documented On 5 10:03AM ; [facility] Non-smoker 01/25/2020 Last Documented On 5 10:03AM ; [facility] Caffeine use 05/25/2019 Last Documented On 5 10:03AM ; [facility], [facility] No tobacco use 04/12/2018 Last Documented On 5 10:03AM ; [facility], [facility] Smoking status : Never smoker 04/12/2018 Last Documented On 5 10:03AM ; [facility], [facility] Not a current smoker 04/12/2018 Last Documented On 5 10:03AM ; [facility] Not exercising regularly 04/12/2018 Last Documented On 5 10:03AM ; [facility], [facility] Not using alcohol 04/12/2018 Last Documented On 5 10:03AM ; [facility], [facility] Not using drugs 04/12/2018 Last Documented On 5 10:03AM ; [facility], [facility] Procedures and Surgical History Includes: Procedures from this encounter Procedures Code Diagnosis Performing Provider Service Location Service Date DRAIN/INJECT, JOINT/BURSA (RIGHT) Unilateral primary osteoarthritis, right knee Jeffery Bal Miramontes PA-C [facility] B 09/13/2024 Last Documented On 5 2:35PM ; [facility], [facility] Orthovisc Hyaluonan, 2cc (RIGHT) [id number] Unilateral primary osteoarthritis, right knee Jeffery Bal Miramontes PA-C [facility] B 09/13/2024 Last Documented On 5 2:35PM ; [facility], [facility] Surgical History Last Updated History of appendectomy 08/23/2024 Last Documented On 5 10:03AM ; [facility], [facility] History of Past Surgical History: 2024 Last Documented On 5 10:03AM ; [facility] Medical History Includes: Medical History addressed during this encounter Description Last Updated History of arthritis 08/23/2024 Last Documented On 5 10:03AM ; [facility] History of History of Blood Clots 2024 Last Documented On 5 10:03AM ; [facility], [facility] History of Hypertension 08/23/2024 Last Documented On 5 10:03AM ; [facility], [facility] Arthritis 07/29/2020 Last Documented On 5 10:03AM ; [facility], [facility] History of Blood Clots 07/29/2020 Last Documented On 5 10:03AM ; [facility] Hypertension 07/29/2020 Last Documented On 5 10:03AM ; [facility] No recent immunization for flu Last Documented On 5 10:03AM ; [facility] No recent immunization for pneumococcal pneumonia 04/15/2020 Last Documented On 5 10:03AM ; [facility] Intermittent hypertension 05/25/2019 Last Documented On 5 10:03AM ; [facility] Shoulder SX - spur removal ~high bp ~blo od clots 04/12/2018 Last Documented On 5 10:03AM ; [facility] Arthritic joint problems 04/12/2018 Last Documented On 5 10:03AM ; [facility] Family History Includes: Family History addressed during this encounter Description Last Updated Maternal history of family history of ca ncer 08/23/2024 Last Documented On 5 10:03AM ; [facility] Maternal history of family history of he art disease 08/23/2024 Last Documented On 5 10:03AM ; [facility] Maternal history of systemic hypertensio n 08/23/2024 Last Documented On 5 10:03AM ; [facility] Family history of hypertension 0 Last Documented On 5 10:03AM ; [facility] Family history of rheumatoid arthritis 0 05/25/2019 Last Documented On 5 10:03AM ; [facility] Family history of cancer 04/12/2018 Last Documented On 5 10:03AM ; [facility] Family history of heart disease 04/12/19 19 Last Documented On 5 10:03AM ; [facility] Review of Systems Includes: Review of [...] Time Diagnosis COSTA Injection Jeffery Miramontes PA-C [facility] B 09/14/19 25 9:53AM 10:33AM Overweight Insurance Includes: Active Insurance Policies Plan Name Member ID Group # Subscriber Relationship Effect huma Dates 1 - Medicare Part B [facility] [id number] Jennifer Jerez Self 09/02/2024 - Unknown 2 - [employer] [id number] Jennifer Jerez Self Clinical Notes Includes: Clinical Notes from this encounter * Progress note Date Encounter Last Documented by 09/13/2024 COSTA Injection Last documented on 09/15/2024; 11:08 AM, Jeffery Miramontes PA-C; [facility], [facility] Active Problems & Conditions - Joint Pain [...] Oral Tablet 10 days, 0 refills - Amoxicillin-Pot Clavulanate 875-125 MG Oral Tablet 10 days, 0 refills - Fluconazole 150 MG Oral Tablet 2 days, 0 refills - Fluticasone Propionate 50 MCG/ACT Nasal Suspension 30 days, 0 refills - HYDROcodone Bit-Homatrop MBr 5-1.5 MG Oral Tablet 8 days, 0 refills - Irbesartan-hydroCHLOROthiazide 150-12.5 MG Oral Tablet 90 days, 0 refills - Irbesartan-hydroCHLOROthiazide 150-12.5 MG Oral Tablet 90 days, 0 refills - Irbesartan-hydroCHLOROthiazide 150-12.5 MG Oral Tablet 90 days, 0 refills - Irbesartan-hydroCHLOROthiazide 150-12.5 MG Oral Tablet 90 days, 0 refills - Irbesartan-hydroCHLOROthiazide 150-12.5 MG Oral Tablet 90 days, 0 refills - Meloxicam 7.5 MG Oral Tablet 30 days, 0 refills - Meloxicam 7.5 MG Oral Tablet 30 days, 0 refills - Meloxicam 7.5 MG Oral Tablet 30 days, 0 refills - Plenvu 140 GM Oral Solution Reconstituted 2 days, 0 refills Past Medical/Surgical History Reported: [...] allergic reaction. Physical Findings - Vitals taken 09/13/2024 10:03 am bm Height 64 in Weight 220 lbs Body Mass Index 37.8 kg/m2 Body Surface Area 2 m2 Assessment - Overweight Counseling/Education Tobacco non-user. [...] will return in 1 week for the 2nd set of the 4 series Right knee [...] Care Team - GIOVANA FUNG MD - HIGH REACH OPERATOR
--- OUTSIDE RECORDS SUMMARY | 2025-02-09 08:59 | XMS_ITS | Clinical Summary ---
Author Organization [facility] Address [address] [place] [id number] Phone Care Team Providers Care Maintenance Craftsman Name Role Phone Pawan LORD, Shane Unavailable [phone] GIOVANA FUNG MD Primary Care Provider [phone] Reason for Visit and Chief Complaint The Chief Complaint is: RIGHT KNEE PAIN Problems Includes: Problems addressed during this encounter and other active Problems All Visits Onset Date Resolved Date Provider Condition S tatus Joint Pain Left Knee 05/31/2023 Shane Villalta MD Active Last Documented On 4 9:27AM ; [facility] Joint Pain Shoulder Bilateral 09/28/2019 Dameon Villalta MD Active Last Documented On 0 9:09AM ; [facility] Joint Pain Right Knee 04/12/2018 Shane Matias Active Last Documented On 9 1:10PM ; [facility] Plan of Treatment Patient screened for future fall risk: documentation of any fall with injury in past year. - Last Documented On 2024 11:08AM ; [facility] Instructions to patient Lose weight Last Documented On 5 10:36AM ; [facility] Assessments Includes: Assessments from this encounter Findings - Overweight - Last Documented On 2024 11:08AM ; [facility], [facility] Instructions Includes: Instructions from this encounter Instructions to patient Lose weight Last Documented On 5 10:36AM ; [facility], [facility] Medical Equipment - Implanted Devices Includes: Current Devices No Medical Equipment Recorded Medications Includes: Medications discussed during this encounter and other current Medications Current Medications (continue as prescribed) Irbesartan-hydroCHLOROthiazi de 150-12.5 MG Oral Tablet 07/10/2024 Provider: GIOVANA FUNG MD Diagnosis: Last Documented On 5 10:04AM By Ced Campuzano ; [facility], [facility] Fluticasone Propionate 50 MC G/ACT Nasal Suspension 05/22/2024 Provider: GIOVANA FUNG MD Diagnosis: Last Documented On 5 10:04AM By Ced Campuzano ; [facility], [facility] Amoxicillin-Pot Clavulanate 875-125 MG Oral Tablet 04/03/2024 Provider: GIOVANA FUNG MD Diagnosis: Last Documented On 5 10:04AM By Ced Campuzano ; [facility], [facility] Meloxicam 7.5 MG Oral Tablet 06/14/2023 Provider: Diagnosis: Last Documented On 4 2:23PM By Shane Villalta ; [facility] HYDROcodone Bit-Homatrop MBr 5-1.5 MG Oral Tablet 06/13/2023 Provider: GIOVANA FUNG MD Diagnosis: Last Documented On 4 2:23PM By Shane Villalta ; [facility] Past Medications on file Medrol 4 MG Oral Tablet Therapy Pack 07/20/2023 - 07/27/2023 Provider: Tree roberts PA-C Diagnosis: take as directed Last Documented On 4 3:53PM By Senia Olguin ; [facility] Medications Administered Includes: Administered Medications from this encounter No Administered Medications Recorded Results Includes: Results discussed during this encounter No Results Recorded For Specified Dates History of Present Illness Includes: History of Present Illness from this encounter AFSANEH Jerez is a 64 year old female. [...] in diet 06/02/2023 Last Documented On 5 10:36AM ; [facility] Not a current smoker. 06/02/2023 Last Documented On 5 10:36AM ; [facility] Tobacco non-user 06/03/2022 Last Documented On 5 10:36AM ; [facility], [facility] Recent change in diet 07/29/2020 Last Documented On 5 10:36AM ; [facility], [facility] Not a current smoker. 04/15/2020 Last Documented On 5 10:36AM ; [facility] Non-smoker 01/25/2020 Last Documented On 5 10:36AM ; [facility], [facility] Caffeine use 05/25/2019 Last Documented On 5 10:36AM ; [facility], [facility] No tobacco use 04/12/2018 Last Documented On 5 10:36AM ; [facility], [facility] Smoking status : Never smoker 04/12/2018 Last Documented On 5 10:36AM ; [facility], [facility] Not a current smoker 04/12/2018 Last Documented On 5 10:36AM ; [facility], [facility] Not exercising regularly 04/12/2018 Last Documented On 5 10:36AM ; [facility], [facility] Not using alcohol 04/12/2018 Last Documented On 5 10:36AM ; [facility], [facility] Not using drugs 04/12/2018 Last Documented On 5 10:36AM ; [facility], [facility] Procedures and Surgical History Includes: Procedures from this encounter Procedures Code Diagnosis Performing Provider Service Location Service Date DRAIN/INJECT, JOINT/BURSA (RIGHT) Unilateral primary osteoarthritis, right knee Jeffery Miramontes PA-C [facility] 2024 Last Documented On 5 9:15AM ; [facility] Orthovisc Hyaluonan, 2cc (RIGHT) [id number] Unilateral primary osteoarthritis, right knee Jeffery Miramontes PA-C [facility] 2024 Last Documented On 5 9:15AM ; [facility], [facility] Surgical History Last Updated History of appendectomy 08/23/2024 Last Documented On 5 10:36AM ; [facility], [facility] History of Past Surgical History: 05/22/ 2025 Last Documented On 5 10:36AM ; [facility], [facility] Medical History Includes: Medical History addressed during this encounter Description Last Updated History of arthritis 08/23/2024 Last Documented On 5 10:36AM ; [facility], [facility] History of History of Blood Clots 2024 Last Documented On 5 10:36AM ; [facility], [facility] History of Hypertension 08/23/2024 Last Documented On 5 10:36AM ; [facility], [facility] Arthritis 07/29/2020 Last Documented On 5 10:36AM ; [facility], [facility] History of Blood Clots 07/29/2020 Last Documented On 5 10:36AM ; [facility], [facility] Hypertension 07/29/2020 Last Documented On 5 10:36AM ; [facility], [facility] No recent immunization for flu Last Documented On 5 10:36AM ; [facility], [facility] No recent immunization for pneumococcal pneumonia 04/15/2020 Last Documented On 5 10:36AM ; [facility], [facility] Intermittent hypertension 05/25/2019 Last Documented On 5 10:36AM ; [facility], [facility] Shoulder SX - spur removal ~high bp ~blo od clots 04/12/2018 Last Documented On 5 10:36AM ; [facility], [facility] Arthritic joint problems 04/12/2018 Last Documented On 5 10:36AM ; [facility], [facility] Family History Includes: Family History addressed during this encounter Description Last Updated Maternal history of family history of ca ncer 08/23/2024 Last Documented On 5 10:36AM ; [facility], [facility] Maternal history of family history of he art disease 08/23/2024 Last Documented On 5 10:36AM ; [facility], [facility] Maternal history of systemic hypertensio n 08/23/2024 Last Documented On 5 10:36AM ; [facility], [facility] Family history of hypertension 0 Last Documented On 5 10:36AM ; [facility] Family history of rheumatoid arthritis 0 05/25/2019 Last Documented On 5 10:36AM ; [facility] Family history of cancer 04/12/2018 Last Documented On 5 10:36AM ; [facility] Family history of heart disease 04/12/19 19 Last Documented On 5 10:36AM ; [facility] Review of Systems Includes: Review [...] Time Diagnosis COSTA Injection Jeffery Miramontes PA-C [facility] B 09/28/19 25 9:40AM 11:07AM Overweight Insurance Includes: Active Insurance Policies Plan Name Member ID Group # Subscriber Relationship Effect huma Dates 1 - Medicare Part B [facility] [id number] Jennifer Jerez Self 09/02/2024 - Unknown 2 - [employer] LIFE [id number] Jennifer Jerez Self Clinical Notes Includes: Clinical Notes from this encounter * Progress note Date Encounter Last Documented by 2024 COSTA Injection Last documented on 2024; 11:08 AM, Jeffery Miramontes PA-C; [facility], [facility] Active Problems & Conditions - Joint [...] Immunologic: No complaint of seasonal allergic reaction. Assessment - Overweight Counseling/Education Tobacco non-user. use [...] will return in 1 week for the 4th set of the 4 series Right knee [...] Care Team - GIOVANA FUNG MD - CHARGE PREPARATION TECHNICIAN
--- OUTSIDE RECORDS SUMMARY | 2025-02-09 08:59 | XMS_ITS ---
Author Organization [facility] Address [address] [place] [address] Phone Care Team Providers Care Professor Of Family Medicine Name Role Phone Pawan LORD, Shane Rios [phone] GIOVANA FUNG MD Primary Care Provider [phone] Reason for Referral Date Encounter Description Provider Reason for Referral 04/21/21 Follow Up Shane Villalta MD Referral To Physician - TO SEE PCP FOR BP 04/01/21 NEW PROBLEM/EST PT Tree Wise PA-C Ref erral To Physician - TO SEE PCP FOR BP 06/24/20 Follow Up Shane Villalta MD Referral To Physician - see pcp for bp 05/30/20 Post Op Shane Villalta MD Referral To Physician - see pcp for bp 05/02/20 Post Op Shane Villalta MD Referral To Physician - see pcp for bp 04/15/20 Follow Up Shane Villalta MD Referral To Physician - see pcp for bp 04/11/20 Follow Up Shane Villalta MD Referral To Physician - see pcp for bp 02/26/20 Post Op Shane Villalta MD Referral To Physician - see pcp for bp 01/25/20 Post Op Shane Villalta MD Referral To Physician - see pcp for bp Problems Includes: Active, inactive, and resolved Problems All Visits Onset Date Resolved Date Provider Condition S tatus Joint Pain Left Knee 05/31/2023 Shane Villalta MD Active Last Documented On 4 9:27AM ; [facility] Joint Pain Shoulder Bilateral 09/28/2019 Dameon Villalta MD Active Last Documented On 0 9:09AM ; [facility] Joint Pain Right Knee 04/12/2018 Shane Matias Active Last Documented On 9 1:10PM ; [facility] Plan of Treatment Findings Encounter Date Patient screened for future fall risk: documentation of any fall with injury in past year COSTA Injection with Jeffery Miramontes PA-C 10/04/2024 Last Documented On 5 8:40AM ; [facility] Patient screened for future fall risk: documentation of any fall with injury in past year COSTA Injection with Jeffery Miramontes PA-C 2024 Last Documented On 5 11:08AM ; [facility] Pending Tests Order Diagnosis Results Due Ordering P rovider Radiology - MRI MRI Shoulder 04/15/21 Tree Wise PA-C Last Documented On 1 2:42PM ; [facility] Radiology - MRI MRI Knee Pain in left knee 06/14/23 Rob Villalta MD Last Documented On 4 9:52AM ; [facility] Instructions to patient Lose weight Last Documented On 5 8:30AM ; [facility] Lose weight Last Documented On 5 10:36AM ; [facility] Lose weight Last Documented On 5 10:23AM ; [facility] Lose weight Last Documented On 5 10:03AM ; [facility] Lose weight Last Documented On 5 11:28AM ; [facility] Lose weight Last Documented On 4 2:23PM ; [facility] Lose weight Last Documented On 4 9:36AM ; [facility] Lose weight Last Documented On 4 9:28AM ; [facility] Lose weight Last Documented On 3 1:49PM ; [facility] Lose weight Last Documented On 2 11:11AM ; [facility] Lose weight Last Documented On 1 2:10PM ; [facility] Instructions for patient to see pcp for weight and blood pressure Last Documented On 1 8:58AM ; [facility] Lose weight Last Documented On 1 8:58AM ; [facility] Instructions for patient to see pcp for weight and blood pressure Last Documented On 1 9:40AM ; [facility] Lose weight Last Documented On 1 9:40AM ; [facility] Instructions for patient to see pcp for weight and blood pressure Last Documented On 1 10:27AM ; [facility] Lose weight Last Documented On 1 10:27AM ; [facility] Instructions for patient to see pcp for weight and blood pressure Last Documented On 1 9:11AM ; [facility] Lose weight Last Documented On 1 9:11AM ; [facility] Instructions for patient to see pcp for weight and blood pressure Last Documented On 1 10:53AM ; [facility] Lose weight Last Documented On 1 10:53AM ; [facility] Instructions for patient to see pcp for weight and blood pressure Last Documented On 1 3:22PM ; [facility] Lose weight Last Documented On 1 3:22PM ; [facility] Instructions for patient to see pcp for weight and blood pressure Last Documented On 1 9:33AM ; [facility] Lose weight Last Documented On 1 9:33AM ; [facility] Instructions for patient to see pcp for weight and blood pressure Last Documented On 0 8:55AM ; [facility] Lose weight Last Documented On 0 8:55AM ; [facility] Instructions for patient to see pcp for weight and blood pressure Last Documented On 0 1:32PM ; [facility] Lose weight Last Documented On 0 1:32PM ; [facility] Instructions for patient to see pcp for weight and blood pressure Last Documented On 0 8:50AM ; [facility] Lose weight Last Documented On 0 8:50AM ; [facility] Instructions for patient to see pcp for weight and blood pressure Last Documented On 0 8:24AM ; [facility] Lose weight Last Documented On 0 8:24AM ; [facility] Instructions for patient to see pcp for weight and blood pressure Last Documented On 0 9:19AM ; [facility] Lose weight Last Documented On 0 9:19AM ; [facility] Instructions for patient see pcp for bp and wt Last Documented On 0 9:35AM ; [facility] Instructions for patient see pcp for bp and weight Last Documented On 0 9:15AM ; [facility] Instructions for patient see pcp for bp and weight Last Documented On 9 10:06AM ; [facility] Instructions for patient see pcp for bp and weight Last Documented On 9 9:15AM ; [facility] Instructions for patient see pcp for bp and weight Last Documented On 9 9:04AM ; [facility] Instructions for patient see pcp for bp and weight Last Documented On 9 9:11AM ; [facility] Instructions for patient see pcp for bp and weight Last Documented On 9 10:01AM ; [facility] Instructions for patient see pcp for bp and weight Last Documented On 9 9:16AM ; [facility] Instructions for patient see pcp for bp Last Documented On 9 1:24PM ; [facility] No intervention and counseli ng on cessation of tobacco use Last Documented On 9 1:24PM ; [facility] Assessments Includes: Assessments for all patient encounters Findings Encounter Date Overweight [facility] Injection with [facility] 10/04/2024 Last Documented On 5 8:40AM ; [facility] Overweight [facility]STA Injection with [facility] PA-C 2024 Last Documented On 5 11:08AM ; [facility] Overweight COSTA Injection with Jeffery [facility] PA-C 09/20/2024 Last Documented On 5 3:34PM ; [facility] Overweight COSTA Injection with Jeffery [facility] PA-C 09/13/2024 Last Documented On 5 11:08AM ; [facility] Overweight NEW PROBLEM/EST PT with Shane Villalta MD 08/23/2024 Last Documented On 5 5:19PM ; [facility] Overweight Follow Up with Tree Medellin PA-C 07/20/2023 Last Documented On 4 10:30AM ; [facility] Overweight Follow Up with Shane Villalta MD 0 06/16/2023 Last Documented On 4 9:08AM ; [facility] Overweight NEW PROBLEM/EST PT with Shane Villalta MD 05/31/2023 Last Documented On 4 1:56PM ; [facility] Instructions Includes: Instructions for all patient encounters Instructions to patient Lose weight Last Documented On 5 8:30AM ; [facility] Lose weight Last Documented On 5 10:36AM ; [facility] Lose weight Last Documented On 5 10:23AM ; [facility] Lose weight Last Documented On 5 10:03AM ; [facility] Lose weight Last Documented On 5 11:28AM ; [facility] Lose weight Last Documented On 4 2:23PM ; [facility] Lose weight Last Documented On 4 9:36AM ; [facility] Lose weight Last Documented On 4 9:28AM ; [facility] Lose weight Last Documented On 3 1:49PM ; [facility] Lose weight Last Documented On 2 11:11AM ; [facility] Lose weight Last Documented On 1 2:10PM ; [facility] Instructions for patient to see pcp for weight and blood pressure Last Documented On 1 8:58AM ; [facility] Lose weight Last Documented On 1 8:58AM ; [facility] Instructions for patient to see pcp for weight and blood pressure Last Documented On 1 9:40AM ; [facility] Lose weight Last Documented On 1 9:40AM ; [facility] Instructions for patient to see pcp for weight and blood pressure Last Documented On 1 10:27AM ; [facility] Lose weight Last Documented On 1 10:27AM ; [facility] Instructions for patient to see pcp for weight and blood pressure Last Documented On 1 9:11AM ; [facility] Lose weight Last Documented On 1 9:11AM ; [facility] Instructions for patient to see pcp for weight and blood pressure Last Documented On 1 10:53AM ; [facility] Lose weight Last Documented On 1 10:53AM ; [facility] Instructions for patient to see pcp for weight and blood pressure Last Documented On 1 3:22PM ; [facility] Lose weight Last Documented On 1 3:22PM ; [facility] Instructions for patient to see pcp for weight and blood pressure Last Documented On 1 9:33AM ; [facility] Lose weight Last Documented On 1 9:33AM ; [facility] Instructions for patient to see pcp for weight and blood pressure Last Documented On 0 8:55AM ; [facility] Lose weight Last Documented On 0 8:55AM ; [facility] Instructions for patient to see pcp for weight and blood pressure Last Documented On 0 1:32PM ; [facility] Lose weight Last Documented On 0 1:32PM ; [facility] Instructions for patient to see pcp for weight and blood pressure Last Documented On 0 8:50AM ; [facility] Lose weight Last Documented On 0 8:50AM ; [facility] Instructions for patient to see pcp for weight and blood pressure Last Documented On 0 8:24AM ; [facility] Lose weight Last Documented On 0 8:24AM ; [facility] Instructions for patient to see pcp for weight and blood pressure Last Documented On 0 9:19AM ; [facility] Lose weight Last Documented On 0 9:19AM ; [facility] Instructions for patient see pcp for bp and wt Last Documented On 0 9:35AM ; [facility] Instructions for patient see pcp for bp and weight Last Documented On 0 9:15AM ; [facility] Instructions for patient see pcp for bp and weight Last Documented On 9 10:06AM ; [facility] Instructions for patient see pcp for bp and weight Last Documented On 9 9:15AM ; [facility] Instructions for patient se e pcp for bp and weight Last Documented On 9 9:04AM ; [facility] Instructions for patient see pcp for bp and weight Last Documented On 9 9:11AM ; [facility] Instructions for patient see pcp for bp and weight Last Documented On 9 10:01AM ; [facility] Instructions for patient see pcp for bp and weight Last Documented On 9 9:16AM ; [facility], [facility] Instructions for patient see pcp for bp Last Documented On 9 1:24PM ; [facility], [facility] No intervention and counseli ng on cessation of tobacco use Last Documented On 9 1:24PM ; [facility], [facility] Medical Equipment - Implanted Devices Includes: Current and historical Devices No Medical Equipment Recorded Medications Includes: Current and historical Medications Current Medications (continue as prescribed) Irbesartan-hydroCHLOROthiazi de 150-12.5 MG Oral Tablet 07/10/2024 Provider: GIOVANA FUNG MD Diagnosis: Last Documented On 5 10:04AM By Ced Campuzano ; [facility] Fluticasone Propionate 50 MC G/ACT Nasal Suspension 05/22/2024 Provider: GIOVANA FUNG MD Diagnosis: Last Documented On 5 10:04AM By Ced Campuzano ; [facility] Amoxicillin-Pot Clavulanate 875-125 MG Oral Tablet 04/03/2024 Provider: GIOVANA FUNG MD Diagnosis: Last Documented On 5 10:04AM By Ced Campuzano ; [facility], [facility] Meloxicam 7.5 MG Oral Tablet 06/14/2023 Provider: Diagnosis: Last Documented On 4 2:23PM By Shane Villalta ; [facility], [facility] HYDROcodone Bit-Homatrop MBr 5-1.5 MG Oral Tablet 06/13/2023 Provider: GIOVANA FUNG MD Diagnosis: Last Documented On 4 2:23PM By Shane Villalta ; [facility], [facility] Past Medications on file Irbesartan-hydroCHLOROthiazi de 150-12.5 MG Oral Tablet 04/11/2024 - 09/20/2024 Provider: GIOVANA FUNG MD Diagnosis: Last Documented On 5 10:24AM By Madai Valdez ; [facility], [facility] Plenvu 140 GM Oral Solution Reconstituted 03/30/2024 - 09/20/2024 Provider: ELAINE Pepper MD Diagnosis: Last Documented On 5 10:24AM By Madai Valdez ; [facility] Medrol 4 MG Oral Tablet Therapy Pack 07/20/2023 - 07/27/2023 Provider: Tree roberts PA-C Diagnosis: take as directed Last Documented On 4 3:53PM By Senia Olguin ; [facility], [facility] Irbesartan-hydroCHLOROthiazi de 150-12.5 MG Oral Tablet 07/16/2023 - 09/20/2024 Provider: GIOVANA FUNG MD Diagnosis: Last Documented On 5 10:23AM By Madai Valdez ; [facility], [facility] Fluconazole 150 MG Oral Tablet 06/17/2023 - 09/20/2024 Provider: GIOVANA FUNG MD Diagnosis: Last Documented On 5 10:24AM By Madai Valdez ; [facility], [facility] Amoxicillin-Pot Clavulanate 875-125 MG Oral Tablet 06/13/2023 - 09/20/2024 Provider: GIOVANA Matamoros MD Diagnosis: Last Documented On 5 10:24AM By Madai Valdez ; [facility], [facility] Meloxicam 7.5 MG Oral Tablet 05/23/2023 - 09/20/2024 P rovider: Diagnosis: Last Documented On 5 10:23AM By Madai Valdez ; [facility], [facility] Meloxicam 7.5 MG Oral Tablet 05/23/2023 - 09/20/2024 P rovider: Diagnosis: Last Documented On 5 10:23AM By Madai Valdez ; [facility], [facility] Irbesartan-hydroCHLOROthiazi de 150-12.5 MG Oral Tablet 04/18/2023 - 09/20/2024 Provider: GIOVANA FUNG MD Diagnosis: Last Documented On 5 10:23AM By Madai Valdez ; [facility], [facility] Irbesartan-hydroCHLOROthiazi de 150-12.5 MG Oral Tablet 04/18/2023 - 09/20/2024 Provider: GIOVANA FUNG MD Diagnosis: Last Documented On 5 10:23AM By Madai Valdez ; [facility], [facility] Irbesartan-hydroCHLOROthiazi de 150-12.5 MG Oral Tablet 06/03/2022 - 05/31/2023 Provider: Diagnosis: Last Documented On 4 9:28AM By Betty Mayfield ; [facility], [facility] Diclofenac 18 MG Oral Capsule 04/01/2021 - 06/03/2022 Provider: Diagnosis: Last Documented On 3 1:57PM By Maria C Albert ; [facility], [facility] Daily Value Multivitamin Oral Tablet 04/01/2021 - 03/0 05/2022 Provider: Diagnosis: Last Documented On 3 1:57PM By Maria C Albert ; [facility], [facility] Zinc 30 MG Oral Tablet 04/01/2021 - 06/03/2022 Provide r: Diagnosis: Last Documented On 3 1:57PM By Maria C Albert ; [facility], [facility] Eliquis 5 MG Oral Tablet 07/29/2020 - 12/09/2020 Provi mel: Diagnosis: Last Documented On 1 9:14AM By Ree Mchugh ; [facility] Irbesartan-hydroCHLOROthiazi de 150-12.5 MG Oral Tablet 07/29/2020 - 06/03/2022 Provider: Diagnosis: Last Documented On 3 1:57PM By Maria C Albert ; [facility], [facility] Ultram 50 MG Oral Tablet 04/17/2020 - 05/31/2023 Provi mel: Shane Villalta MD Diagnosis: 1-2 po q 4-6h 1-2 tablets by mouth every 4-6hrs for post op pain Last Documented On 4 9:27AM By Betty Mayfield ; [facility] Eliquis 5 MG Oral Tablet 04/15/2020 - 07/29/2020 Provi mel: Diagnosis: Last Documented On 1 10:00AM By Maria Dolores Baker ; [facility] Aspirin Adult Low Strength 8 1 MG Oral Tablet Delayed Release 01/11/2020 - 07/29/2020 Provider: Shane Villalta MD Diagnosis: 1 TABLET twice a day Last Documented On 1 10:00AM By Maria Dolores Baker ; [facility] Ultram 50 MG Oral Tablet 01/04/2020 - 05/31/2023 Provi mel: Shane Villalta MD Diagnosis: 1-2 po q 4-6h 1-2 tablets by mouth every 4-6hrs for post op pain Last Documented On 4 9:28AM By Betty Mayfield ; [facility] oxyCODONE HCl 5 MG Oral Tablet 01/04/2020 - 05/31/2023 Provider: Shane Villalta MD Diagnosis: 1 po q 4h 1 tablet by mouth every [address] op pain Last Documented On 4 9:28AM By Betty Mayfield ; [facility] Zofran 4 MG Oral Tablet 01/04/2020 - 05/31/2023 Provid er: Shane Villalta MD Diagnosis: 1 po q 6 to 8 hrs prn pain t richard 1 tablet every 6-8hrs for nausea, AFTER SURGERY Last Documented On 4 9:27AM By Betty Mayfield ; [facility] Adult Aspirin Regimen 81 MG Oral Tablet Delayed Release 09/28/2019 - 07/29/2020 Provider: Diagnosis: Last Documented On 1 10:00AM By Maria Dolores Baker ; [facility] Irbesartan-Hydrochlorothiazi de 150-12.5MG Oral Tablet 04/12/2018 - 07/29/2020 Provider: Diagnosis: Last Documented On 1 10:00AM By Maria Dolores Baker ; [facility] Medications Administered Includes: Administered Medications in patient's chart No Administered Medications Recorded Vital Signs Includes: Vital Signs from 02/10/2024 through 02/09/2025 Vital Name 10/04/2024 08:30A 09/20/2024 10:24A 09/13/2024 10:03A 08/23/2024 11:24A Height (in) 64 64 64 64 Weight (lb) 225 225.4 220 220 Body Mass Index 38.6 38.7 37.8 37.8 Body Surface Area 2.1 2.1 2 2 Pain Level 2 Note: ser sr bm BNA Last Documented: On 10/04/2024 8:30AM ; [facility] On 09/20/2024 10:24AM ; [facility] On 09/13/2024 10:04AM ; [facility] On 08/23/2024 11:26AM ; [facility], [facility] Results Includes: Results from 02/10/2024 through 02/09/2025 No Results Recorded For Specified Dates History of Present Illness History of Present Illness not supported for this document type No History of Present Illness Recorded Social History Description Last Updated No recent change in diet 06/02/2023 Last Documented On 4 1:56PM ; [facility] Not a current smoker. 06/02/2023 Last Documented On 4 1:56PM ; [facility] Tobacco non-user 06/03/2022 Last Documented On 4 9:33AM ; [facility] Recent change in diet 07/29/2020 Last Documented On 1 10:36AM ; [facility] Not a current smoker. 04/15/2020 Last Documented On 1 6:52AM ; [facility], [facility] Non-smoker 01/25/2020 Last Documented On 1 10:38AM ; [facility], [facility] Caffeine use 05/25/2019 Last Documented On 1 10:35AM ; [facility], [facility] No tobacco use 04/12/2018 Last Documented On 9 4:22PM ; [facility], [facility] Smoking status : Never smoker 04/12/2018 Last Documented On 9 4:22PM ; [facility], [facility] Not a current smoker 04/12/2018 Last Documented On 9 4:22PM ; [facility], [facility] Not exercising regularly 04/12/2018 Last Documented On 9 4:22PM ; [facility], [facility] Not using alcohol 04/12/2018 Last Documented On 9 4:22PM ; [facility], [facility] Not using drugs 04/12/2018 Last Documented On 9 4:22PM ; [facility], [facility] Procedures and Surgical History Includes: Procedures from 02/10/2024 through 02/09/2025 Procedures Code Diagnosis Performing Provider Service Location Service Date Orthovisc Bravo, 2cc (RIGHT) J7324 Unilateral primary osteoarthritis, right [facility] Last Documented On 5 9:24PM ; [facility] DRAIN/INJECT, JOINT/BURSA (RIGHT) Unilateral primary osteoarthritis, right knee [facility] Last Documented On 5 9:24PM ; [facility] Orthovisc [place], 2cc (RIGHT) J7324 Unilateral primary osteoarthritis, right knee Jeffery Bal Shepardcarlos MARIE-[facility] B 2024 Last Documented On 5 9:15AM ; [facility], [facility] DRAIN/INJECT, JOINT/BURSA (RIGHT) Unilateral primary osteoarthritis, right knee Jeffery Bal Shepardcarlos MARIEC [facility] B 2024 Last Documented On 5 9:15AM ; [facility] Orthovisc [place], 2cc (RIGHT) J7324 Unilateral primary osteoarthritis, right knee Jeffery Bal Miramontes DAISY [facility] B 09/20/2024 Last Documented On 5 5:47PM ; [facility] DRAIN/INJECT, JOINT/BURSA (RIGHT) [id number] Unilateral primary osteoarthritis, right knee [facility] 09/[facility]24 Last Documented On 5 5:47PM ; [facility] DRAIN/INJECT, JOINT/BURSA (RIGHT) Unilateral primary osteoarthritis, right knee [facility]/2024 Last Documented On 5 2:35PM ; [facility] Orthovisc [place], 2cc (RIGHT) J7324 Unilateral primary osteoarthritis, right knee [facility] 09/13/2024 Last Documented On 5 2:35PM ; [facility] X-RAY EXAM OF KNEE 1 OR 2 VIEWS (RIGHT) [id number] Unilateral primary osteoarthritis, right knee Shane Villalta MD [facility] 08/23/2024 Last Documented On 5 7:46AM ; [facility] Surgical History Last Updated History of appendectomy 08/23/2024 Last Documented On 5 5:19PM ; [facility] History of Past Surgical History: 2024 Last Documented On 5 5:19PM ; [facility] Medical History Includes: Medical History in patient's chart Description Last Updated History of arthritis 08/23/2024 Last Documented On 5 5:19PM ; [facility] History of History of Blood Clots 2024 Last Documented On 5 5:19PM ; [facility] History of Hypertension 08/23/2024 Last Documented On 5 5:19PM ; [facility] Arthritis 07/29/2020 Last Documented On 1 10:36AM ; [facility] History of Blood Clots 07/29/2020 Last Documented On 1 10:36AM ; [facility] Hypertension 07/29/2020 Last Documented On 1 10:36AM ; [facility] No recent immunization for flu 1 Last Documented On 1 6:52AM ; [facility] No recent immunization for pneumococcal pneumonia 04/15/2020 Last Documented On 1 6:52AM ; [facility] Intermittent hypertension 05/25/2019 Last Documented On 1 10:35AM ; [facility] Shoulder SX - spur removal ~high bp ~blo od clots 04/12/2018 Last Documented On 9 4:22PM ; [facility] Arthritic joint problems 04/12/2018 Last Documented On 9 4:22PM ; [facility] Family History Includes: Family History in patient's chart Description Last Updated Maternal history of family history of ca ncer 08/23/2024 Last Documented On 5 5:19PM ; [facility] Maternal history of family history of he art disease 08/23/2024 Last Documented On 5 5:19PM ; [facility] Maternal history of systemic hypertensio n 08/23/2024 Last Documented On 5 5:19PM ; [facility] Family history of hypertension 0 Last Documented On 1 10:35AM ; [facility] Family history of rheumatoid arthritis 0 05/25/2019 Last Documented On 1 10:35AM ; [facility] Family history of cancer 04/12/2018 Last Documented On 9 4:22PM ; [facility] Family history of heart disease 04/12/19 19 Last Documented On 9 4:22PM ; [facility] Review of Systems Review of Systems not supported for this document type No Review of Systems Recorded Mental Status No Mental Status Recorded Functional Status No Functional Status Recorded Physical Exam Physical Exam not supported for this document type No Physical Exam Recorded Allergies Includes: Active, inactive, and resolved Allergies No Known Allergies Encounters Includes: Encounters from 02/10/2024 through 02/09/2025 Encounter Provider Location Date Check-In Time Check-Out Time Diagnosis Follow Up Jeffery Miramontes PA-C [facility] 02/08/20 9:20AM 9:49AM COSTA Injection Jeffery Miramontes PA-C [facility] 10/05/19 8:29AM 8:47AM Overweight COSTA Injection Jeffery Miramontes PA-C [facility] 09/28/19 9:40AM 11:07AM Overweight OCSTA Injection Jeffery Miramontes PA-C [facility] 09/21/19 10:01AM 10:47AM Overweight COSTA Injection Jeffery Miramontes PA-C [facility] 09/14/19 9:53AM 10:33AM Overweight NEW PROBLEM/EST PT Shane Villalta MD [facility] 08/24/19 10:29AM 11:11AM Overweight Insurance Includes: Active Insurance Policies Plan Name Member ID Group # Subscriber Relationship Effect huma Dates 1 - Medicare Part B [facility] [id number] Jennifer Jerez Self 09/02/2024 - Unknown 2 - [employer] [id number] Jennifer Jerez Self Clinical Notes Includes: Signed Clinical Notes starting from 03/18/2022 * Progress note Date Encounter Last Documented by 10/04/2024 COSTA Injection Last documented on 10/04/2024; 8:40 AM, Jeffery Miramontes PA-C; [facility] Active Problems & Conditions - Joint [...] Care Team - GIOVANA FUNG MD - MANAGER SOURCING * Progress note Date Encounter Last Documented by 2024 COSTA Injection Last documented on 2024; 11:08 AM, Jeffery Miramontes PA-C; [facility] Active Problems & Conditions - Joint [...] Care Team - GIOVANA FUNG MD - MANAGER SOURCING * Progress note Date Encounter Last Documented by 09/20/2024 COSTA Injection Last documented on 09/25/2024; 3:34 PM, Jeffery Miramontes PA-C; [facility], [facility] Active Problems & Conditions - Joint [...] Care Team - GIOVANA FUNG MD - MANAGER SOURCING * Progress note Date Encounter Last Documented by 09/13/2024 COSTA Injection Last documented on 09/15/2024; 11:08 AM, Jeffery Miramontes PA-C; [facility] Active Problems & Conditions - Joint [...] Care Team - GIOVANA FUNG MD - MANAGER SOURCING * Progress note Date Encounter Last Documented by 08/23/2024 NEW PROBLEM/EST PT Last document ed on 09/03/2024; 5:19 PM, Shane Villalta MD; [facility] Active Problems & Conditions - Joint Pain in the Left Knee - Joint Pain in the Right Knee - Joint Pain, Localized in Both Shoulders Subjective Have you ever tried physical therapy for this and how long and where? NO What injections have you tried for this pain? GEL Last injection date? Have you had prior surgery on this area? NO What medications have you tried for this pain? IBUPROFEN Have you tried to lose weight? NO Chief Complaint The Chief Complaint is: RIGHT [...] previous treatment. - Review of medications documented Patient with progressive osteoarthritis pain right knee and increased symptoms over the last 6-9 months with difficulty weight-bearing get him down from seated position stair climbing etcetera significant affecting activities daily living in her life function she did well with a series of Orthovisc injections a couple of years ago and we would like to repeat this I think that is is a good option for her this point Current Medication - Amoxicillin-Pot Clavulanate 875-125 MG Oral Tablet 10 days, 0 refills - Fluconazole 150 MG Oral Tablet 2 days, 0 refills - HYDROcodone Bit-Homatrop MBr [...] bp blood clots. Surgical: - Appendectomy - Appendectomy - Past Surgical History: Social [...] Family History Cancer Heart disease Systemic hypertension Maternal: Cancer Heart disease Systemic hypertension Review [...] allergic reaction. Physical Findings - Vitals taken 08/23/2024 11:24 am BNA Height 64 in 59 - 78 Weight 220 lbs 96 - 178 Body Mass Index 37.8 kg/m2 Body Surface Area 2 m2 Right knee varus deformity 10 degree flexion contracture 120 flexion normal stability varus valgus anterior drawer testing tenderness maximum of the medial compartment with crepitation antalgic gait Tests X-rays three views of the right knee show narrowing of the medial patellofemoral joint space with osteophytes consistent with a moderate to severe OA Assessment - Overweight Counseling/Education Tobacco non-user. use of tobacco assessment performed. - Lose weight Plan Patient is a good candidate for COSTA injection Orthovisc we will preauthorize this in the see her back for injection to the right knee x-rays today three views show near complete loss of joint space medial compartment but good maintenance of the lateral patellofemoral joint space otherwise Care Team - GIOVANA FUNG MD - MANAGER SOURCING
--- OUTSIDE RECORDS SUMMARY | 2025-02-09 08:59 | XMS_ITS ---
Care Plan - [facility], [facility] Created on: February 09, 2025 Jennifer Jerez : 1960 Sex: Female Author Organization [facility] , [facility] Address [address] [place] [phone] Phone Care Team Providers Care Surgeon/President Name Role Phone Pawan LORD, Shane Unavailable KENTON LORD, GIOVANA Prakash Primary Care Provider [phone]
--- OUTSIDE RECORDS SUMMARY | 2025-02-09 08:59 | XMS_ITS ---
Author Organization Unknown ENCOUNTERS Encounter Performer Location Date Diagnosis Diagnosis Status Pre Admit [address] [place] [place] [address] [id number] Emergency [address] [place] [place] [address] [id number] *Note: Encounters from your own facility or health system may be excluded. Allergies, Adverse Reactions, Alerts Allergen Type Severity Identification Date NKDA propensity to adverse reactions 0 [id number] Medications Name Date Quantity Days Supplied GPI Number
--- OUTSIDE RECORDS SUMMARY | 2025-02-09 08:59 | XMS_ITS | Clinical Summary ---
[facility] Organization [facility] Address [address] [place] [address] Care Team Providers Care Duck Farmer Name Role Phone Suman Guzman MD Primary Care Provider [phone] Allergies No known active allergies Medications irbesartan-hydro [...] ANNUAL PHYSICAL 05/03/2018 HEPATITIS C SCREENING 05/03/2018 INFLUENZA VACCINE 11/02/2024 COVID-19 Vaccine (1 - 2023-2 5 season) 2024 MAMMOGRAM 03/16/2025 03/16/2023, 07/0 04/2020, 06/13/2019, Additional [...] of concern indicated by the patient. A [place] marker is placed over a visible skin [...] Most Recently Relevant to Health Maintenance Insurance [address] [id number] [facility] Member Subscriber Plan / Payer (Ef fective 2018-Present) Name:Jennifer Brown Relation to Subscriber:Self Name:Jennifer Brown Payer ID:[id number] (NAIC) Group ID:Not on file Type:Not on file Address: [place] [id number] Care Teams Duck Farmer Relationship Specialty Start Date End Date Suman Guzman MD [address] [facility] [address] [facility] [place] [id number] PCP - General Internal Medicine 03/16/23
[2025-02-09 09:01] VITALS: BP 143/64; PULSE 72; O2SAT 97
[2025-02-09 09:31] VITALS: BP 138/71; PULSE 65; O2SAT 99
[2025-02-09 11:48] VITALS: BP 146/82; PULSE 64; RESP 16; TEMP 36.8; O2SAT 97
== END 2025-02-09 11:55 | disposition home or self-care (01) ==
PROVIDERS: Emergency Provider Emergency Medicine; PCP Internal Medicine
DX: M79.604 Pain in right leg (principal); M17.11 Unilateral primary osteoarthritis, right knee; Z86.718 Personal history of other venous thrombosis and embolism
CPT/HCPCS: 73562; 93971; 99283; 99284